=== PATIENT | female | born 1965 | race Two or more races ===

== ENCOUNTER 2017-09-16 10:44 | Emergency (ER) | payer OTHER, MEDICAID ==
[~2017-09-16] VITALS: Ht 172.7 cm; Wt 90.7 kg
[2017-09-16 11:00] VITALS: BP 138/92
[2017-09-16 11:26] LABS: Basophils # (auto) 0.1 uL; Basophils % (auto) 1.2 % (0.0-2.0); Eosinophils # (auto) 0.1 uL; Eosinophils % (auto) 1.7 % (0.0-7.0); Hematocrit 36.1 % (36.0-46.0); Hemoglobin 11.8 g/dL (12.2-16.2); Lymphocytes # (auto) 2.1 uL; Lymphocytes % (auto) 32.7 % (10.0-50.0); Mean Corpuscular Hemoglobin 31.4 pg (28.0-32.0); Mean Corpuscular Hgb Conc. 32.6 g/dL (32.0-36.0); Mean Corpuscular Volume 96.3 fL (80.0-100.0); Monocytes # (auto) 0.5 uL; Neutrophils # (auto) 3.6 uL; Neutrophils % (auto) 56.4 % (37.0-80.0); Nucleated Red Blood Cells % 0.1 %; Platelet Count (auto) 164 10^3/uL (140-450); Red Blood Cells 3.75 10^6/uL (4.0-5.20); Red Cell Distribution Width 16.2 % (11.8-14.3); White Blood Cell 6.4 10^3/uL (4.4-10.8)
[2017-09-16 11:50] LABS: Alanine Aminotransferase 34 U/L (13-56); Albumin 3.4 g/dL (3.4-5.0); Alkaline Phosphatase 82 U/L (45-117); Anion Gap 9 (5-15); Aspartate Aminotransferase 57 U/L (15-37); BUN/Creatinine Ratio 11.2; Bilirubin, Total 1.9 mg/dL (0.2-1.0); Blood Urea Nitrogen 10 mg/dL (7-18); Calcium 8.9 mg/dL (8.5-10.1); Carbon Dioxide 26 mmol/L (21-32); Chloride 107 mmol/L (98-107); GFR African American 86 mL/min; GFR Non-African American 71 mL/min; Glucose 96 mg/dL (74-106); Magnesium 1.7 mg/dL (1.6-2.6); Potassium 3.3 mmol/L (3.5-5.1); Sodium 142 mmol/L (136-145); Total Protein 6.9 g/dL (6.4-8.2)
== END 2017-09-16 13:33 | disposition left against medical advice (07) ==
LOC: ER 10:44
DX: M54.5 Low back pain (principal); M79.671 Pain in right foot; Z53.21 Procedure and treatment not carried out due to patient leaving prior to being seen by health care provider
CPT/HCPCS: 36415; 80053; 83735; 84484; 85025

== ENCOUNTER 2019-12-31 09:35 | Inpatient (IN) | payer MEDICARE, OTHER ==
[2019-12-30] MEDS: fentaNYL Drip 2500mCg/250mlNS 250 ML IV SCH (22:00)
[~2019-12-31] VITALS: Ht 165.1 cm; Wt 76.0 kg
[2019-12-31] VITALS (43 sets, daily range): BP systolic 107–143; BP diastolic 56–88
[2019-12-31] MEDS ORDERED: methylPREDNISolone SOD SUCC 125 MG/2 ML VL ONE (09:38)
[2019-12-31] MEDS ORDERED: diphenhdrAMINE HCL 50 MG/1 ML VL ONE ×2 (09:38→18:14)
[2019-12-31] MEDS ORDERED: FAMOTIDINE (10MG/ML) 2ML VL IV ONE ×2 (09:39→09:40)
[2019-12-31] MEDS ORDERED: diphenhdrAMINE HCL 50 MG/1 ML VL IV ONE (09:40)
[2019-12-31] MEDS ORDERED: methylPREDNISolone SOD SUCC 125 MG/2 ML VL IV ONE (09:40)
[2019-12-31] MEDS ORDERED: ETOMIDATE (2MG/ML) 20ML VIAL IV ONE ×2 (09:43→09:45)
[2019-12-31] MEDS ORDERED: MIDAZOLAM DRIP 50 mg/50mL 0 ML IV ONE (09:44)
[2019-12-31] MEDS ORDERED: SUCCINYLCHOLINE CHLORIDE 20 MG/ML 10ML VIAL IV ONE ×2 (09:44→09:45)
[2019-12-31] MEDS ORDERED: MIDAZOLAM DRIP 50 mg/50mL 50 ML IV SCH (09:45)
[2019-12-31] MEDS ORDERED: MIDAZOLAM DRIP 50 mg/50mL 50 ML IV ONE ×3 (09:48→18:14)
[2019-12-31] MEDS ORDERED: PROPOFOL 10 MG/ML 20 ML IV ONE (10:05)
[2019-12-31] MEDS ORDERED: DexAMETHasone SOD PHOS 10MG/1ML VIAL INJ IV ONE (10:05)
[2019-12-31] MEDS ORDERED: LIDOCAINE W/ EPINEPHRINE 1% 20ML VIAL ONE (10:16)
[2019-12-31] MEDS ORDERED: MIDAZOLAM HCL 1MG/1ML-2 ML VIAL ONE ×2 (10:27→10:40)
[2019-12-31] MEDS ORDERED: fentaNYL CITRATE 100 MCG/2 ML VL ONE (10:27)
[2019-12-31] MEDS ORDERED: HYDROmorphone HCL 2 MG/ML VL ONE (10:27)
[2019-12-31] MEDS ORDERED: NOREPINEPHRINE 8 MG/250ML KIT 250 ML IV ONE (11:08)
[2019-12-31] MEDS: NOREPINEPHRINE 8 MG/250ML KIT 250 ML IV SCH (11:12)
[2019-12-31] MEDS ORDERED: PIPERACILLIN-TAZOB 3.375GM 100 ML IV ONE (11:15)
[2019-12-31] MEDS ORDERED: DEXTROSE (50%) 50ML SYRG IV PRN (11:15)
[2019-12-31] MEDS ORDERED: MONTELUKAST SODIUM 10 MG TAB PO ONE (11:15)
[2019-12-31] MEDS ORDERED: NITROGLYCERIN 0.4 MG SL TAB SL PRN (11:15)
[2019-12-31] MEDS ORDERED: PANTOPRAZOLE 40 MG/10 ML VIAL INJ IV ONE (11:15)
[2019-12-31] MEDS: InsuLIN REG 1unit/0.01ml Soln (100units/ml) SC SCH ×2 (11:24→18:50)
[2019-12-31] MEDS: ACCU-CHEK COMFORT CURVE STRIP VI SCH ×2 (11:24→18:53)
[2019-12-31] MEDS: LACTATED RINGER'S 1,000 ML IV SCH ×2 (11:30→15:02)
[2019-12-31] MEDS: diphenhdrAMINE HCL 50 MG/1 ML VL IV SCH ×2 (12:41→18:19)
[2019-12-31 12:48] LABS: Albumin 2.6 g/dL (3.4-5.0); Anion Gap 8 (5-15); Blood Urea Nitrogen 6 mg/dL (7-18); Carbon Dioxide 23 mmol/L (21-32); Chloride 110 mmol/L (98-107); Glucose 115 mg/dL (74-106); Potassium 3.6 mmol/L (3.5-5.1); Sodium 141 mmol/L (136-145)
[2019-12-31 12:53] LABS: Alanine Aminotransferase 18 U/L (13-56); Alkaline Phosphatase 96 U/L (45-117); Aspartate Aminotransferase 50 U/L (15-37); BUN/Creatinine Ratio 7.8; Bilirubin, Total 0.9 mg/dL (0.2-1.0); GFR African American 100 mL/min; GFR Non-African American 83 mL/min; Total Protein 7.2 g/dL (6.4-8.2)
[2019-12-31 12:56] LABS: Basophils # (auto) 0 10 ^3/uL (0-0.2); Basophils % (auto) 0.2 % (0.0-2.0); Eosinophils # (auto) 0 10 ^3/uL (0-0.8); INR 1.11 (0.9-1.15); Lymphocytes # (auto) 0.4 10 ^3/uL (0.4-5.4); Monocytes # (auto) 0.3 10 ^3/uL (0-1.3); Partial Thromboplastin Time 29.9 sec (23.0-31.2)
[2019-12-31 12:57] LABS: Eosinophils % (auto) 0.2 % (0.0-7.0); Hematocrit 38.6 % (36.0-46.0); Hemoglobin 12.3 g/dL (12.2-16.2); Lymphocytes % (auto) 3.3 % (10.0-50.0); Mean Corpuscular Hemoglobin 32.3 pg (28.0-32.0); Mean Corpuscular Hgb Conc. 31.9 g/dL (32.0-36.0); Mean Corpuscular Volume 101.3 fL (80.0-100.0); Monocytes % (auto) 2.1 % (0.0-12.0); Neutrophils # (auto) 11.5 10 ^3/uL (1.6-8.6); Neutrophils % (auto) 94.2 % (37.0-80.0); Platelet Count (auto) 326 10^3/uL (140-450); Red Blood Cells 3.82 10^6/uL (4.0-5.20); Red Cell Distribution Width 13.2 % (11.8-14.3); White Blood Cell 12.2 10^3/uL (4.4-10.8)
--- NOTE | 2019-12-31 13:30 | NUR ---
RECEIVED PT FROM OR S/P EMERGENCY TRACHEOSTOMY INSERTION BY DR. PECK FOR ANGIOEDEMA. 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 PT'S TONGUE PROTRUDING OUT OF PT'S MOUTH AND COVERED WITH MOISTEN 4x4 DRESSINGS WITH NS TO KEEP TONGUE MOIST. VENT SETTINGS AC 18, TV 500, 50% PEEP 5. LS COARSE WITH RHONCHI AND CLEAR WHEN SUCTIONED. PT CURRENTLY INTUBATED & SEDATED ON FENTANYL AT 25 MCG/HR AND VERSED AT 5 MG/HR. PT IS COMFORTABLE WITH CURRENT SEDATION LR AT 100 ML/HR. PT HAS 2 IV'S ONE ON THE RT HAND THE OTHER ON THE LT FA BOTH ARE BENIN & PATENT. FC EXCRETING CLEAR YELLOW URINE TO GRAVITY, FC WITH SECUREMENT DEVICE IN PLACE. ALL MONITOR ALARMS VERIFIED. PT'S SKIN INTACT OTHER THJAN TRACH INCISION AND SWOLLEN TONGUE. PT'S BELONGINGS WILL BE SENT TO SAFE.
--- NOTE | 2019-12-31 14:56 | NUR ---
2ND CALL TO PT'S PHONE # THAT WE OBTAINED FROM PT'S MD'S OFFICE. TO OBTAIN CONSENT FOR PICC LINE INSERTION.
--- NOTE | 2019-12-31 15:25 | NUR ---
NOTIFIED DR. RO THAT I COULD NOT GET HOLD OF NOK FOR PT'S PICC LINE INSERTION . STATES TO GET CONSENT FROM DR. PECK. I PAGED DR. PECK AT THIS TIME.
--- NOTE | 2019-12-31 15:29 | NUR ---
CONSENT FOR PICC OBTAINED FROM ED MD DR. HUTCHINSON AND DR. RO, PT DOES NOT HAVE ANYONE TO CONSENT FOR HER AT THIS TIME. I CALL ALL THE PHONE NUMBERS FOUND IN HER PHONE. NO CALL BACKS. I WAS ABLE TO REACH HER BOYFRIEND BUT HE HAS NO MEDICAL POA. OBTAIN SOME MEDICAL HISTORY FROM PT'S BOYFRIEND , THEY HAVE BEEN TOGETHER FOR ONE YEAR HE DENIES KNOWING ANY OF PT'S FAMILY MEMBERS.
--- NOTE | 2019-12-31 16:59 | NUR ---
PICC line placement Patient/Patient significant other educated on need for PICC line placement. All risks and benefits explained and all questions and concerns addressed prior to procedure. Noted past medical history and allergies with no contraindications. INR and Plt counts within acceptable range. 5 fr PICC line inserted via RIGHT BRACHIAL vein using [employer] US and Tip Location System. Sterile technique with maximum barrier precautions utilized. Blood return obtained from each of THE THREE lumens and each flushed easily with NS using proper technique. PICC secured with Stat-lock; biodisc and occlusive dressing applied. Stat portable chest x-ray obtained for PICC tip placement. *Baseline Arm Circumference 29 CM INTERNAL LENGTH 41 CM EXTERNAL LENGTH 0 CM PICC lot # [id number]
--- NOTE | 2019-12-31 17:10 | NUR ---
OK to use PICC line Xray completed. OK to use PICC line. Primary RN Cait notified.
[2019-12-31] MEDS ORDERED: LIDOCAINE 1% (LOCAL ANESTH.) PF 5ml SDV ID ONE (17:15)
[2019-12-31] MEDS ORDERED: LEVO-28 PO (18:15)
[2019-12-31] MEDS ORDERED: SULF-92 PO (18:15)
[2019-12-31] MEDS ORDERED: OXYC325T14 PO (18:15)
[2019-12-31] MEDS ORDERED: LISI30TA4 PO (18:15)
[2019-12-31] MEDS ORDERED: FURO1TAB31 PO (18:15)
[2019-12-31] MEDS ORDERED: SACU1TAB PO (18:15)
[2019-12-31] MEDS ORDERED: ALBUAER3 IN (18:15)
[2019-12-31] MEDS: PIPERACILLIN-TAZOB 3.375GM 100 ML IV SCH ×2 (18:19→22:00)
[2019-12-31] MEDS: methylPREDNISolone SOD SUCC 125 MG/2 ML VL IV SCH ×2 (18:19→22:00)
[2019-12-31] MEDS: MIDAZOLAM DRIP 50 mg/50mL 50 ML IV SCH (18:25)
[2019-12-31] MEDS ORDERED: MONTELUKAST SODIUM 10 MG TAB ONE (18:32)
[2019-12-31] MEDS ORDERED: InsuLIN REG 1unit/0.01ml Soln (100units/ml) ONE (18:53)
--- NOTE | 2019-12-31 19:00 | NUR ---
Opening shift note: Report received on patient. Patient currently resting in bed sedated on Fent and versed. Patient had an emergency Trach performed today d/t edema of the tongue that was blocking patient's airway. NGT to right Nostril connected to LIS. Placement confirmed. Mcleod catheter draining via gravity with yellow urine. Safety precautions in place. Will continue to monitor patient.
--- NOTE | 2019-12-31 20:23 | NUR ---
FFP STARTED. RN WILL CONTINUE TO MONITOR AND ASSESS PATIENT.
--- NOTE | 2019-12-31 21:00 | NUR ---
TRANSFUSION: PATIENT CONTINUES WITH FFP TRANSFUSION AND NO ADVERSE REACTIONS NOTED AT THIS TIME. RN WILL CONTINUE TO MONITOR AND ASSESS PATIENT.
[2019-12-31] MEDS: MONTELUKAST SODIUM 10 MG TAB PO SCH (22:00)
[2019-12-31] MEDS: SODIUM CHLOR 0.9% PF (SALINE LOCK) 10ML VIAL/SYR IV SCH (22:26)
--- NOTE | 2019-12-31 22:30 | NUR ---
FFP TRANSFUSION: PATIENT COMPLETED FFP TRANSFUSION WITH NO S/S OF DISCOMFORT, DISTRESS OR ADVERSE REACTION. RN WILL CONTINUE TO MONITOR AND ASSESS.
--- NOTE | 2019-12-31 23:00 | NUR ---
Sedation increased: Sedation had to be increased d/t patient waking and attempting to climb out of bed. RN stayed at patient bedside for a long period of time to ensure patient was safe and no harm was caused.
[2020-01-01] VITALS (101 sets, daily range): BP systolic 81–143; BP diastolic 50–76
[2020-01-01] MEDS: ACCU-CHEK COMFORT CURVE STRIP VI SCH ×4 (00:10→17:35)
--- NOTE | 2020-01-01 02:30 | NUR ---
Covid sample obtained and swab walked to lab.
[2020-01-01 03:31] LABS: Urine Blood Negative /uL (Negative); Urine Specific Gravity 1.017 (1.001-1.035); Urine WBC 1 /hpf (0 - 5)
[2020-01-01 03:32] LABS: Urine Bacteria NONE SEEN /hpf (None Seen)
[2020-01-01 04:32] LABS: Alcohol, Urine < 3.0 mg/dL (0-10); Amphetamine Screen, Urine POSITIVE (NEGATIVE); Barbiturate Scree,Urine NEGATIVE (NEGATIVE); Benzodiazephine Screen, Urine POSITIVE (NEGATIVE); Cannabinoid Screen, Urine POSITIVE (NEGATIVE); Cocaine Screen, Urine NEGATIVE (NEGATIVE); Phencyclidine Screen, Urine NEGATIVE (NEGATIVE)
[2020-01-01 04:40] LABS: Opiate Scree,Urine NEGATIVE (NEGATIVE)
[2020-01-01 05:11] LABS: Basophils # (auto) 0 10 ^3/uL (0-0.2); Basophils % (auto) 0.1 % (0.0-2.0); Eosinophils # (auto) 0 10 ^3/uL (0-0.8); Hematocrit 38.7 % (36.0-46.0); Hemoglobin 12.8 g/dL (12.2-16.2); Lymphocytes # (auto) 0.8 10 ^3/uL (0.4-5.4); Lymphocytes % (auto) 7.4 % (10.0-50.0); Mean Corpuscular Hemoglobin 33.2 pg (28.0-32.0); Mean Corpuscular Hgb Conc. 33.1 g/dL (32.0-36.0); Mean Corpuscular Volume 100.2 fL (80.0-100.0); Monocytes # (auto) 0.1 10 ^3/uL (0-1.3); Monocytes % (auto) 1.2 % (0.0-12.0); Neutrophils # (auto) 9.5 10 ^3/uL (1.6-8.6); Neutrophils % (auto) 91.3 % (37.0-80.0); Nucleated Red Blood Cells % 0.3 %; Platelet Count (auto) 313 10^3/uL (140-450); Red Blood Cells 3.86 10^6/uL (4.0-5.20); Red Cell Distribution Width 13.4 % (11.8-14.3); White Blood Cell 10.4 10^3/uL (4.4-10.8)
[2020-01-01 05:32] LABS: Alanine Aminotransferase 15 U/L (13-56); Albumin 2.4 g/dL (3.4-5.0); Alkaline Phosphatase 76 U/L (45-117); Aspartate Aminotransferase 28 U/L (15-37); BUN/Creatinine Ratio 12.5; Bilirubin, Total 0.5 mg/dL (0.2-1.0); Blood Urea Nitrogen 8 mg/dL (7-18); Calcium 8.6 mg/dL (8.5-10.1); Carbon Dioxide 26 mmol/L (21-32); GFR African American 124 mL/min; GFR Non-African American 103 mL/min; Glucose 123 mg/dL (74-106); Total Protein 6.3 g/dL (6.4-8.2)
[2020-01-01] MEDS: PIPERACILLIN-TAZOB 3.375GM 100 ML IV SCH ×3 (05:46→22:00)
[2020-01-01] MEDS: methylPREDNISolone SOD SUCC 125 MG/2 ML VL IV SCH ×3 (05:46→22:00)
[2020-01-01] MEDS: diphenhdrAMINE HCL 50 MG/1 ML VL IV SCH ×4 (05:46→17:37)
[2020-01-01] MEDS: InsuLIN REG 1unit/0.01ml Soln (100units/ml) SC SCH ×4 (05:47→17:36)
[2020-01-01 06:33] LABS: Anion Gap 4 (5-15); Chloride 110 mmol/L (98-107); Potassium 4.2 mmol/L (3.5-5.1); Sodium 140 mmol/L (136-145)
--- NOTE | 2020-01-01 06:59 | NUR ---
Levo started and stopped. Levo was started d/t patient's blood pressure decreasing to 84/52. As soon as levo was started, patient became norberto to 50's and BP increased to 187/110. Levo was stopped. Patient heart rate back to 67 SR.
--- NOTE | 2020-01-01 07:11 | NUR ---
REPORT RECEIVED FROM PESTICIDE APPLICATOR RN
[2020-01-01] MEDS: SODIUM CHLOR 0.9% PF (SALINE LOCK) 10ML VIAL/SYR IV SCH ×2 (08:58→22:00)
[2020-01-01] MEDS: LACTATED RINGER'S 1,000 ML IV SCH ×2 (08:58→11:15)
[2020-01-01] MEDS: PANTOPRAZOLE 40 MG/10 ML VIAL INJ IV SCH (08:58)
--- NOTE | 2020-01-01 09:00 | NUR ---
SEDATION VACATION HELD AT THIS TIME. DUE TO AGITATION Addendum: 01/01/20 at 1026 by Minesh Bergeron RN Amended: Links added.
--- NOTE | 2020-01-01 11:10 | NUR ---
DR. RO AT [facility] Addendum: 01/01/20 at 1401 by Minesh Bergeron RN TIME 1112
[2020-01-01] MEDS: NOREPINEPHRINE 8 MG/250ML KIT 250 ML IV SCH (11:12)
--- NOTE | 2020-01-01 11:12 | NUR ---
DR. RO AT BEDSIDE
--- NOTE | 2020-01-01 11:30 | NUR ---
Nutrition Consult Consider Glucerna 1.2 at a goal rate of 60 ml/hr per Md approval Est energy needs 1071-2174 kcal (20-25 kcal/kg BW 72.2kg) Est protein needs 58-72g (0.8-1g/kg BW 72.2kg) Will reassess prn. Addendum: 01/01/20 at [address] Amended: Links added.
--- NOTE | 2020-01-01 11:32 | NUR ---
WOUND CARE NOTE: Wound care in to see patient per wound care request regarding "trach incision monitoring", low Aravind score of 12 and intubation status, putting patient to high risk for skin breakdown. Patient is 54 years old female admitted for Tongue swelling. Patient is resting in ICU bed in Rm. 108. Patient is mechanically ventilated via trach. Patient appears to be in no pain using Do [place] Faces Pain Scale. Skin assessment done with the assistance of patient's nurse, KENDELL Edge. No wound noted, other than intact, suture to trach site with pink, dry surrounding skin no. On reports, patient came in with tongue swelling obstructing her air way and so she undergone emergent tracheostomy. No pressure injury noted. Repositioned patient for comfort facing her Rt. side, redistributed pressure points with pillows. Patient tolerated well. KENDELL Edge at bedside. RECOMMENDATION: frequent turning and repositioning schedule as condition permits, redistribute pressure points with pillows, elevate heels on pillows, continue monitoring by wound care while is mechanically ventilated and Aravind score is <18.
[2020-01-01] MEDS: fentaNYL Drip 2500mCg/250mlNS 250 ML IV SCH (11:38)
--- NOTE | 2020-01-01 11:45 | NUR ---
WOUND CARE NURSE AT BEDSIDE TO ASSESS PATIENT
[2020-01-01] MEDS: MIDAZOLAM DRIP 50 mg/50mL 50 ML IV SCH (12:22)
--- NOTE | 2020-01-01 14:01 | NUR ---
ORAL AND TRACH CARE PERFORMED PATIENT TOLERATED WELL
--- NOTE | 2020-01-01 15:02 | NUR ---
assessment Patient is a 54 year old female who was alert and oriented on admission. Patient had to be trached due to tongue swelling. Per ss consult patient lives with sig other, marijuana use, trached, no DPOA. Patient does live with her boyfriend ZOHREH Dunbar and was independent prior to admission per XL. XL informed me patient has no DME for ambulating, but does use home oxygen. XL informed me patient does smoke marijuana about 3 times per week. XL informed me patient has a sister, but he does not know where she is. Patient has no other family that he knows of. Per XL patient is to return home with him on discharge. I infomred XL I will continue to monitor and follow up as appropriate for any post discharge needs. XL verbalized understanding. Addendum: 01/01/20 at 1508 by Mattie KIRAN Amended: Links added.
--- NOTE | 2020-01-01 15:32 | NUR ---
PARTIAL LINEN CHANGE PERFORMED AT THIS TIME
--- NOTE | 2020-01-01 18:22 | NUR ---
ORAL CARE PERFORMED PATIENT TOLERATED WELL
--- NOTE | 2020-01-01 19:00 | NUR ---
Opening shift note: Report received on patient. Patient currently resting in bed sedated on Fent and versed. NGT to right Nostril connected to LIS. Placement confirmed. Mcleod catheter draining via gravity with yellow urine. Safety precautions in place. Will continue to monitor patient.
[2020-01-01] MEDS: MONTELUKAST SODIUM 10 MG TAB PO SCH (22:00)
--- NOTE | 2020-01-01 22:00 | NUR ---
Moist gauze on swollen tongue changed to keep tongue moist and prevent dryness.
[2020-01-02] VITALS (92 sets, daily range): BP systolic 109–151; BP diastolic 58–87
--- NOTE | 2020-01-02 | NUR ---
Moist gauze on swollen tongue changed to keep tongue moist and prevent dryness.
--- NOTE | 2020-01-02 02:00 | NUR ---
Moist gauze on swollen tongue changed to keep tongue moist and prevent dryness.
[2020-01-02] MEDS: LACTATED RINGER'S 1,000 ML IV SCH ×2 (03:55→15:53)
--- NOTE | 2020-01-02 03:58 | NUR ---
Moist gauze on swollen tongue changed to keep tongue moist and prevent dryness.
[2020-01-02 04:15] LABS: Basophils # (auto) 0.1 10 ^3/uL (0-0.2); Basophils % (auto) 0.4 % (0.0-2.0); Eosinophils # (auto) 0 10 ^3/uL (0-0.8); Hematocrit 36.2 % (36.0-46.0); Lymphocytes % (auto) 5.4 % (10.0-50.0); Mean Corpuscular Hemoglobin 33.2 pg (28.0-32.0); Mean Corpuscular Hgb Conc. 33.1 g/dL (32.0-36.0); Mean Corpuscular Volume 100.1 fL (80.0-100.0); Monocytes # (auto) 0.4 10 ^3/uL (0-1.3); Monocytes % (auto) 2.3 % (0.0-12.0); Neutrophils # (auto) 16.9 10 ^3/uL (1.6-8.6); Neutrophils % (auto) 91.9 % (37.0-80.0); Platelet Count (auto) 344 10^3/uL (140-450); Red Blood Cells 3.61 10^6/uL (4.0-5.20); Red Cell Distribution Width 13.5 % (11.8-14.3); White Blood Cell 18.4 10^3/uL (4.4-10.8)
[2020-01-02 04:38] LABS: BUN/Creatinine Ratio 20.5; Calcium 8.8 mg/dL (8.5-10.1); Potassium 4.2 mmol/L (3.5-5.1)
[2020-01-02] MEDS: diphenhdrAMINE HCL 50 MG/1 ML VL IV SCH ×5 (05:22→21:33)
[2020-01-02] MEDS: methylPREDNISolone SOD SUCC 125 MG/2 ML VL IV SCH ×3 (05:23→21:34)
[2020-01-02] MEDS: PIPERACILLIN-TAZOB 3.375GM 100 ML IV SCH ×3 (05:23→21:34)
[2020-01-02] MEDS: InsuLIN REG 1unit/0.01ml Soln (100units/ml) SC SCH ×4 (05:23→18:00)
[2020-01-02] MEDS: ACCU-CHEK COMFORT CURVE STRIP VI SCH ×4 (05:24→18:01)
[2020-01-02] MEDS: SODIUM CHLOR 0.9% PF (SALINE LOCK) 10ML VIAL/SYR IV SCH ×2 (10:09→21:33)
[2020-01-02] MEDS: PANTOPRAZOLE 40 MG/10 ML VIAL INJ IV SCH (10:09)
[2020-01-02] MEDS: NOREPINEPHRINE 8 MG/250ML KIT 250 ML IV SCH (11:12)
[2020-01-02] MEDS: MIDAZOLAM DRIP 50 mg/50mL 50 ML IV SCH ×2 (11:12→22:16)
--- NOTE | 2020-01-02 14:05 | NUR ---
DR RO CAME AND SAW THE PATIENT AND ORDERED TO WEAN FROM SEDATION AND PUT PATIENT ON TRACH COLLAR.MOIST SWOLLEN TONGUE WITH NS. SUCTIONED PATIENT ORALLY AND PATIENT BECAME ANXIOUS BUT STILL SLEEPY. WEANED SEDATION OFF.
--- NOTE | 2020-01-02 16:00 | NUR ---
ATTEMPTED CPAP AND PATIENT BECAME AGITATED AND RESTLESS. TRACH CARE DONE BY RT WITH NURSING ASSIST AND EXPLAINED TO THE PATIENT THE REASON FOR THE TRACH BUT PATIENT BECAME MORE RESTLESS AND KICKING. RESTARTED VERSED AT 6 MG AND FENTANYL AT 150 MCG TO CALM PATIENT .
--- NOTE | 2020-01-02 19:00 | NUR ---
OPENING NOTES ASSUMED CARE, SEDATED AND ON VENT CONNECTED TO TRACHEOSTOMY, PICC LINE, FC INTACT, OCCASIONALLY WAKES UP TO STIMULI, CLEAR LUNG SOUNDS NOTED. BED IN LOWEST POSITION WITH SIDE RAILS UP, BED ALARM ON. WILL CONTINUE CARE.
[2020-01-02] MEDS: MONTELUKAST SODIUM 10 MG TAB PO SCH (21:34)
[2020-01-02] MEDS: fentaNYL Drip 2500mCg/250mlNS 250 ML IV SCH (22:15)
[2020-01-03] VITALS (62 sets, daily range): BP systolic 135–174; BP diastolic 59–84
[2020-01-03] MEDS: ACCU-CHEK COMFORT CURVE STRIP VI SCH ×4 (00:16→17:35)
--- NOTE | 2020-01-03 04:00 | NUR ---
MORNING CARE DONE, ORAL HYGIENE DONE REPOSITIONED FOR COMFORT
[2020-01-03 04:15] LABS: Basophils # (auto) 0 10 ^3/uL (0-0.2); Eosinophils # (auto) 0 10 ^3/uL (0-0.8); Hematocrit 36.1 % (36.0-46.0); Hemoglobin 12.4 g/dL (12.2-16.2); Lymphocytes # (auto) 0.9 10 ^3/uL (0.4-5.4); Lymphocytes % (auto) 7.1 % (10.0-50.0); Mean Corpuscular Hemoglobin 34.4 pg (28.0-32.0); Mean Corpuscular Hgb Conc. 34.4 g/dL (32.0-36.0); Mean Corpuscular Volume 100.1 fL (80.0-100.0); Monocytes # (auto) 0.2 10 ^3/uL (0-1.3); Monocytes % (auto) 1.8 % (0.0-12.0); Neutrophils # (auto) 11.2 10 ^3/uL (1.6-8.6); Neutrophils % (auto) 91.1 % (37.0-80.0); Nucleated Red Blood Cells % 0.1 %; Platelet Count (auto) 250 10^3/uL (140-450); Red Cell Distribution Width 13.2 % (11.8-14.3); White Blood Cell 12.3 10^3/uL (4.4-10.8)
--- NOTE | 2020-01-03 04:15 | NUR ---
Respiratory note: TRACH CARE PERFORMED WITH NO COMPLICATIONS NOTED. NEW AND OLD BLOOD AROUND STOMA SITE. TRACH IS SECURED WITH SUTURES AND TRACH TIE. GAUZE CHANGED. BS CLEAR T/O. SPO2 97%, HR 48, RR 18.
[2020-01-03 04:28] LABS: BUN/Creatinine Ratio 27.4; Potassium 4.2 mmol/L (3.5-5.1)
[2020-01-03] MEDS: InsuLIN REG 1unit/0.01ml Soln (100units/ml) SC SCH ×4 (06:00→17:34)
[2020-01-03] MEDS: diphenhdrAMINE HCL 50 MG/1 ML VL IV SCH ×3 (06:29→21:48)
[2020-01-03] MEDS: PIPERACILLIN-TAZOB 3.375GM 100 ML IV SCH ×3 (06:29→21:50)
[2020-01-03] MEDS: methylPREDNISolone SOD SUCC 125 MG/2 ML VL IV SCH ×3 (06:29→21:49)
[2020-01-03] MEDS: LACTATED RINGER'S 1,000 ML IV SCH (09:16)
[2020-01-03] MEDS: MIDAZOLAM DRIP 50 mg/50mL 50 ML IV SCH ×2 (09:17→18:00)
[2020-01-03] MEDS: PANTOPRAZOLE 40 MG/10 ML VIAL INJ IV SCH (09:50)
[2020-01-03] MEDS: SODIUM CHLOR 0.9% PF (SALINE LOCK) 10ML VIAL/SYR IV SCH ×2 (09:50→21:49)
[2020-01-03] MEDS: NOREPINEPHRINE 8 MG/250ML KIT 250 ML IV SCH (11:12)
--- NOTE | 2020-01-03 12:14 | NUR ---
Nutrition Followup Notes Wt: 72.0 kg pt`s on trach collar with no family by bedside. pt is currently NPO with no new diet orders Est energy needs 2895-7327 kcal (20-25 kcal/kg BW 72.2kg) Est protein needs 58-72g (0.8-1g/kg BW 72.2kg) Will reassess prn. Labs: GLU 119 H rest lab wnl BM: Pt has no BM reported per RN doc Skin: BS 13 mod risk, full details in home health care physician note PES: Inadequate oral intake aeb pt with NPO diet order r/t current medical condition Comments Will continue to monitor NPO status, skin status, pertinent labs and weight trends. Will f/u in 2-3 days. Rec: 1) Continue to monitor NPO status, labs, skin 2) refer pt to OPD on Dc 3) Continue current plan of care. Consider initiating TF of Glucerna 1.2 when medically feasible with a goal rate of 60 ml/hr
--- NOTE | 2020-01-03 16:34 | NUR ---
PATIENT WAS SEEN BY DR Petros VIZCARRA AND ATTEMPTED TO WEAN FROM VERSED AND FENTANYL FOR CPAP. WHEN READY FOR CPAP PATIENT BECAME RESTLESS AND TOSSING AROUND DR Mayank VIZCARRA NOT TO CPAP TODAY BECAUSE PATIENT NOT FOLLOWING ANY COMMANDS. INSTRUCTED PATIENT WHAT HAPPENED AND EXPLAINED WHAT OCCURED THAT SHE HAVE A TRACHEOSTOMY TUBE DUE TO HER NECK AND TONGUE SWELLING BUT PATIENT CONTINUES TO BE AGITATED.
--- NOTE | 2020-01-03 19:10 | NUR ---
Report received from KENDELL Haas. Patient has emergent Tracheostomy to Vent. Vent settings: AC 18 Vt 500 FiO2 30% PEEp 5. IVF: Fentanyl drip infusion at 75 mcg/hr; and, Versed drip infusion at 8 mg/hr. Will continue with POC; and, will continue to monitor VS, RASS -3, and clinical status.
--- NOTE | 2020-01-03 19:35 | NUR ---
Hospitalist paged for order: Precedex.
[2020-01-03] MEDS: fentaNYL Drip 2500mCg/250mlNS 250 ML IV SCH (20:49)
--- NOTE | 2020-01-03 20:49 | NUR ---
Fentanyl drip bag changed to new bag.
--- NOTE | 2020-01-03 21:49 | NUR ---
Rtn scheduled medications given. See e-MAR.
[2020-01-03] MEDS: MONTELUKAST SODIUM 10 MG TAB PO SCH (21:50)
--- NOTE | 2020-01-03 23:52 | NUR ---
Patient sat up in bed; and, disconnected Vent Tubing. Fentanyl drip increase to 100 mcg/hr; also, Versed drip increase to 10 mg/hr. Accucheck 398 mg/dl. Patient covered with Regular Insulin 10 units SQ.
[2020-01-04] VITALS (101 sets, daily range): BP systolic 108–156; BP diastolic 63–81
[2020-01-04] MEDS: ACCU-CHEK COMFORT CURVE STRIP VI SCH ×4 (00:18→18:00)
[2020-01-04] MEDS: InsuLIN REG 1unit/0.01ml Soln (100units/ml) SC SCH ×4 (00:19→19:13)
[2020-01-04] MEDS: MIDAZOLAM DRIP 50 mg/50mL 50 ML IV SCH ×3 (01:05→20:25)
--- NOTE | 2020-01-04 01:05 | NUR ---
Versed drip changed to new bag.
[2020-01-04] MEDS: LACTATED RINGER'S 1,000 ML IV SCH (02:56)
--- NOTE | 2020-01-04 02:56 | NUR ---
IVF LR 1000 bag changed to new bag. Resumed infusion at 60 ml/hr.
[2020-01-04] MEDS: diphenhdrAMINE HCL 50 MG/1 ML VL IV SCH ×3 (05:38→20:58)
[2020-01-04] MEDS: PIPERACILLIN-TAZOB 3.375GM 100 ML IV SCH ×3 (05:39→20:59)
[2020-01-04] MEDS: methylPREDNISolone SOD SUCC 125 MG/2 ML VL IV SCH ×3 (05:39→20:59)
--- NOTE | 2020-01-04 05:39 | NUR ---
Rtn scheduled medications given. See e-MAR.
--- NOTE | 2020-01-04 05:56 | NUR ---
Accucheck 151 mg/dl. Patient covered with Regular Insulin 2 units SQ.
--- NOTE | 2020-01-04 07:17 | NUR ---
Versed drip changed to new bag.
[2020-01-04] MEDS: PANTOPRAZOLE 40 MG/10 ML VIAL INJ IV SCH (10:06)
[2020-01-04] MEDS: SODIUM CHLOR 0.9% PF (SALINE LOCK) 10ML VIAL/SYR IV SCH ×2 (10:06→20:58)
[2020-01-04] MEDS: NOREPINEPHRINE 8 MG/250ML KIT 250 ML IV SCH (16:40)
[2020-01-04] MEDS: fentaNYL Drip 2500mCg/250mlNS 250 ML IV SCH (16:41)
--- NOTE | 2020-01-04 19:15 | NUR ---
Opening Shift Note: Patient has trach/on vent. Trach is 8.9 Shiley emergently inserted by Dr. Ames on 12/31/19 related to angioedema/possible anaphylactic shock, patient previously received contrast/bactrim at another facility per physician documentation. Settings: AC rate 18, vT 500, FiO2 30%, and PEEP 5. Neuro: pupils bilateral are 3 mm/brisk; moves extremities intermittently when stimulated verbally mild weakness; + cough/gag. Cardio: SB in 40s with occasional PACs; SBPs 140s/150s; pulses all palpable; no edema noted. Resp: anterior lung sounds are clear throughout; deep tracheal suctioning yellow/thick/small. GI: right nare NGT to LIS: dark green output; hypoactive BS; last BM unknown. : landrum catheter inserted on 12/31/19 for strict I/O: clear yellow. Skin: intragluteal crease has a small break in the skin: zguard and optifoam applied. IV: RUE triple lumen PICC inserted on 12/31/19 running Fentanyl @ 175; Versed @ 10; LR @ 60 ml/hr; IV right hand 20 g IID inserted on 12/31/19; IV 20 g left forearm IID inserted on 12/31/19. No pending orders at this time. Will continue to round/reposition/perform oral care prn.
[2020-01-04] MEDS: MONTELUKAST SODIUM 10 MG TAB PO SCH (20:59)
[2020-01-05] VITALS (97 sets, daily range): BP systolic 101–159; BP diastolic 54–87
[2020-01-05] MEDS: ACCU-CHEK COMFORT CURVE STRIP VI SCH ×4 (00:16→17:48)
--- NOTE | 2020-01-05 05:05 | NUR ---
Patient bathe/linen change Patient given complete CHG bath. Skin integrity assessed for any changes. Linens and gown changed. Patient repositioned for comfort.
[2020-01-05] MEDS: fentaNYL Drip 2500mCg/250mlNS 250 ML IV SCH ×2 (05:37→20:15)
[2020-01-05] MEDS: methylPREDNISolone SOD SUCC 125 MG/2 ML VL IV SCH ×2 (05:37→20:15)
[2020-01-05] MEDS: LACTATED RINGER'S 1,000 ML IV SCH ×2 (05:37→12:17)
[2020-01-05] MEDS: InsuLIN REG 1unit/0.01ml Soln (100units/ml) SC SCH ×5 (05:37→17:50)
[2020-01-05] MEDS: diphenhdrAMINE HCL 50 MG/1 ML VL IV SCH (05:37)
[2020-01-05] MEDS: PIPERACILLIN-TAZOB 3.375GM 100 ML IV SCH (05:37)
[2020-01-05 09:59] LABS: Basophils # (auto) 0 10 ^3/uL (0-0.2); Basophils % (auto) 0.1 % (0.0-2.0); Eosinophils # (auto) 0 10 ^3/uL (0-0.8); Hematocrit 38.7 % (36.0-46.0); Hemoglobin 13.2 g/dL (12.2-16.2); Lymphocytes # (auto) 0.7 10 ^3/uL (0.4-5.4); Lymphocytes % (auto) 6.7 % (10.0-50.0); Mean Corpuscular Hemoglobin 33.8 pg (28.0-32.0); Mean Corpuscular Hgb Conc. 34.1 g/dL (32.0-36.0); Mean Corpuscular Volume 99.2 fL (80.0-100.0); Monocytes # (auto) 0.3 10 ^3/uL (0-1.3); Monocytes % (auto) 2.7 % (0.0-12.0); Neutrophils # (auto) 9.9 10 ^3/uL (1.6-8.6); Neutrophils % (auto) 90.5 % (37.0-80.0); Nucleated Red Blood Cells % 0.2 %; Platelet Count (auto) 201 10^3/uL (140-450); Red Cell Distribution Width 13.1 % (11.8-14.3)
[2020-01-05] MEDS: PANTOPRAZOLE 40 MG/10 ML VIAL INJ IV SCH (10:30)
[2020-01-05] MEDS: SODIUM CHLOR 0.9% PF (SALINE LOCK) 10ML VIAL/SYR IV SCH ×2 (10:30→20:15)
[2020-01-05 10:38] LABS: Albumin 2.3 g/dL (3.4-5.0); Calcium 8.8 mg/dL (8.5-10.1)
[2020-01-05 10:43] LABS: BUN/Creatinine Ratio 29.2; Bilirubin, Total 0.7 mg/dL (0.2-1.0); Total Protein 6.4 g/dL (6.4-8.2)
--- NOTE | 2020-01-05 12:00 | NUR ---
MISSED ACCUCHECK AT 1200 DUE TO EMERGENCY WITH OTHER ASSIGNED PATIENT
--- NOTE | 2020-01-05 12:11 | NUR ---
Nutrition Followup Notes Wt: 74.0 kg Pt`s on trach collar with no family by bedside. Pt is currently NPO with no new diet orders, waiting for MD diet order per RN. Est energy needs 4286-4519 kcal (20-25 kcal/kg BW 72.2kg) Est protein needs 58-72g (0.8-1g/kg BW 72.2kg) Will reassess prn. Labs: GLU 119 H, Alb 2.4 L, rest lab wnl BM: Pt has no BM reported per RN doc Skin: BS 13 mod risk, full details in disabilities caregiver note PES: Inadequate oral intake aeb pt with NPO diet order r/t current medical condition Comments Will continue to monitor NPO status, skin status, pertinent labs and weight trends. Will f/u in 2-3 days. Rec: 1) Continue to monitor NPO status, labs, skin 2) refer pt to OPD on Dc 3) Continue current plan of care. Consider initiating TF of Glucerna 1.2 when medically feasible with a goal rate of 60 ml/hr
[2020-01-05] MEDS: MIDAZOLAM DRIP 50 mg/50mL 50 ML IV SCH ×2 (12:16→20:16)
--- NOTE | 2020-01-05 14:57 | NUR ---
DR RO AT BEDSIDE, NEW ORDERS OBTAINED
[2020-01-05] MEDS ORDERED: diphenhdrAMINE HCL 50 MG/1 ML VL IV PRN (15:00)
--- NOTE | 2020-01-05 16:00 | NUR ---
VERSED OFF AT THIS TIME FOR DR ORDER FOR TRACH COLLAR RT AWARE
--- NOTE | 2020-01-05 16:15 | NUR ---
Respiratory note: ALARMS AT APPROPRIATE SETTINGS AND AUDIBLE. BREATH SOUNDS ARE CLEAR. RN AT BEDSIDE. PT PLACED ON COOL MIST TRACH COLLAR PER DR RO'S ORDERS. PT DID NOT TOLERATE TRACH COLLAR. PT IS STILL GROGGY AND SLOW TO RESPOND TO VERBAL COMMANDS. WILL ENDORSE PT CARE TO NOC RT.
--- NOTE | 2020-01-05 17:30 | NUR ---
IV removal X2 R HAND 20G, L FA 20G REMOVED DUE TO PLACEMENT ON 12/30, BOTH IVS DC'd with clean sterile technique, catheter fully intact. Pressure dressing applied to site. Patient tolerated well.
--- NOTE | 2020-01-05 18:37 | NUR ---
VERSED TURNED BACK ON AT 1800 DUE TO PATIENT ATTEMPTING TO CONSTANTLY SIT UP IN BED AND THRASHING ARMS/LEGS. ATIVAN ORDER IN PER DR RO HOWEVER PATIENT UNABLE TO FOLLOW COMMANDS AT THIS TIME SO SEDATION BACK ON FOR NIGHT. REMAINED ON FENTANYL AT 175 MCG/HR. RT AWARE. OK FOR PRECEDEX GTT IN AM PER DR RO TO ATTEMPT TO GET PATIENT OFF VENTILATOR AND PLACED ON TRACH COLLAR.
--- NOTE | 2020-01-05 19:20 | NUR ---
Opening Shift Note: Patient has trach/on vent. Trach is 8.0 Shiley emergently inserted by Dr. Ames on 12/31/19 related to angioedema/possible anaphylactic shock, patient previously received contrast/bactrim at another facility per physician documentation. Settings: AC rate 18, vT 500, FiO2 30%, and PEEP 5. Neuro: pupils bilateral are 3 mm/brisk; moves extremities intermittently when stimulated verbally mild weakness; + cough/gag. Cardio: SB in 40s with occasional PACs; SBPs 120s; pulses all palpable; no edema noted. Resp: anterior lung sounds are clear throughout; deep tracheal suctioning yellow/thick/small. GI: right nare NGT to LIS: dark green output; hypoactive BS; last BM unknown. : landrum catheter inserted on 12/31/19 for strict I/O: clear yellow. Skin: intragluteal crease has a small break in the skin: zguard and optifoam applied. IV: RUE triple lumen PICC inserted on 12/31/19 running Fentanyl @ 175; Versed @ 10. Plan to initiate trach collar when patient hemodynamically able to tolerate; will start precedex to ease process and decrease sedation. Will continue to round/reposition/perform oral care prn.
[2020-01-05] MEDS: MONTELUKAST SODIUM 10 MG TAB PO SCH (20:15)
[2020-01-05] MEDS: DexMEDEtomidine 400 MCG in D5W 5% 96 ML IV SCH (23:30)
--- NOTE | 2020-01-05 23:30 | NUR ---
Precedex started per protocol for anticipated trach collar trial
--- NOTE | 2020-01-05 23:30 | NUR ---
*Patient removal of NG tube: Upon rounding, NG tube was found pulled out. NGT reinserted to right nare at 65 cm. Positive placement confirmed with auscultation and aspiration of bile contents. Pending CXR also to confirm proper placement.
[2020-01-06] VITALS (93 sets, daily range): BP systolic 139–183; BP diastolic 65–97
--- NOTE | 2020-01-06 04:14 | NUR ---
Patient bathe/linen change Patient given complete CHG bath. Skin integrity assessed for any changes. Linens an gown changed. Patient repositioned for comfort.
[2020-01-06] MEDS: MIDAZOLAM DRIP 50 mg/50mL 50 ML IV SCH (04:19)
--- NOTE | 2020-01-06 05:00 | NUR ---
Page sent to assistant distribution manager hospitalist for prn BP medication: sustaining SBPs 150s-160s
[2020-01-06] MEDS: ACCU-CHEK COMFORT CURVE STRIP VI SCH ×4 (05:55→17:32)
[2020-01-06] MEDS: InsuLIN REG 1unit/0.01ml Soln (100units/ml) SC SCH ×4 (05:55→17:29)
--- NOTE | 2020-01-06 06:03 | NUR ---
Page return: Per Trav BHAKTA, new order for hydralazine 10 mg IVP once
[2020-01-06] MEDS ORDERED: hydrALAZINE HCL 20 MG/ML VL IV ONE (06:15)
--- NOTE | 2020-01-06 06:34 | NUR ---
Per pharmacy, hydralazine is on back order and unavailable. Repaged for alternative medication.
[2020-01-06] MEDS ORDERED: cloNIDine HCL 0.1 MG TAB PO ONE (06:45)
[2020-01-06] MEDS: DexMEDEtomidine 400 MCG in D5W 5% 96 ML IV SCH ×3 (07:03→22:41)
--- NOTE | 2020-01-06 07:45 | NUR ---
Opening Shift Note Assumed care of patient, trache to mech vent. No S/S of distress/SOB or pain. RT nare NGT clamped, medication administered before shift change. See interventions for complete assessment. Bed locked on low position, side rails up x2 bed alarms on at all times, will continue to monitor for changes Q1hr and PRN.
--- NOTE | 2020-01-06 08:30 | NUR ---
Dr Ames at bedside, updated on patient's status. Patient seen and examined. Will carry out new orders.
[2020-01-06] MEDS: fentaNYL Drip 2500mCg/250mlNS 250 ML IV SCH (09:28)
--- NOTE | 2020-01-06 09:30 | NUR ---
Fentanyl and Versed turned off. Will continue to monitor.
[2020-01-06] MEDS: methylPREDNISolone SOD SUCC 125 MG/2 ML VL IV SCH (09:31)
[2020-01-06] MEDS: SODIUM CHLOR 0.9% PF (SALINE LOCK) 10ML VIAL/SYR IV SCH ×2 (09:31→21:11)
[2020-01-06] MEDS: levoFLOXacin 500MG 100 ML IV SCH (09:31)
[2020-01-06] MEDS: PANTOPRAZOLE 40 MG/10 ML VIAL INJ IV SCH (09:31)
--- NOTE | 2020-01-06 10:35 | NUR ---
Dr Hernandez at bedside, updated on patient's status. Informed of patient's hypertension. Patient seen and examined. Will carry out new orders.
[2020-01-06] MEDS ORDERED: hydrALAZINE HCL 20 MG/ML VL IV PRN (10:45)
--- NOTE | 2020-01-06 11:40 | NUR ---
Respiratory note: PT UNABLE TO TOLERATE TRACH COLLAR AT THIS TIME. PT IS GROGGY AND UNRESPONSIVE TO VERBAL COMMANDS. KENDELL BENSON AT BEDSIDE. WILL CONTINUE TO MONITOR FOR PT READINESS.
--- NOTE | 2020-01-06 13:00 | NUR ---
Patient waking up, able to follow simple command, restless, trying to sit up, reaching out for trache and tubings, trying get out of bed. Patient denies pain. Re-orientation done and re-positioned for comfort. Precedex drip increased to 0.7 mcg/kg/hr for agitation. Will continue to monitor.
--- NOTE | 2020-01-06 16:50 | NUR ---
PT PLACED ON TRACH COLLAR DID NOT TOLERATE WELL. SPO2 DROPPED HEART RATE DECREASED. RN KELLEY MADE AWARE.Respiratory note:
--- NOTE | 2020-01-06 17:20 | NUR ---
Patient blood pressure 170's/ 90's, paged hospitalist. Awaiting call back.
--- NOTE | 2020-01-06 17:52 | NUR ---
Re-paged hospitalist. Awaiting call back.
--- NOTE | 2020-01-06 18:10 | NUR ---
Received call from Dr Castañeda. Updated on patient's status. Informed of patient's HR 40's and SBP 170's to 180's, verbalized understanding. Received order for Vasotec PRN.
[2020-01-06] MEDS ORDERED: ENALAPRILAT 1.25 MG/ML-1ML VIAL IV PRN (18:15)
--- NOTE | 2020-01-06 19:20 | NUR ---
Opening Shift Note: Patient has trach/on vent. Trach is 8.0 Shiley emergently inserted by Dr. Ames on 12/31/19 related to angioedema/possible anaphylactic shock, patient previously received contrast/bactrim at another facility per physician documentation. Settings: AC rate 18, vT 500, FiO2 30%, and PEEP 5. Neuro: pupils bilateral are 3 mm/brisk; moves extremities attempting to hit/punch/kick; very agitated; + cough/gag. Cardio: SB in 40s-50s with occasional PACs; SBPs 160s-170s; pulses all palpable; no edema noted. Resp: anterior lung sounds are clear throughout; deep tracheal suctioning yellow/thick/small. GI: right nare NGT to LIS: dark green output; hypoactive BS; last BM unknown. : landrum catheter inserted on 12/31/19 for strict I/O: clear yellow. Skin: intragluteal crease has a small break in the skin: zguard and optifoam applied. IV: RUE triple lumen PICC inserted on 12/31/19 running Precedex @ 0.07. Plan to initiate trach collar when patient hemodynamically able to tolerate; patient did not tolerate trach collar today per report. Will continue to round/reposition/perform oral care prn.
--- NOTE | 2020-01-06 19:48 | NUR ---
*Patient removal of NG tube: Upon rounding, NG tube was found pulled out. NGT reinserted to right nare at 65 cm. Positive placement confirmed with auscultation and aspiration of bile contents.
[2020-01-06] MEDS: LORazepam 2MG/ML-1ML VIAL IV PRN (20:03)
[2020-01-06] MEDS: methylPREDNISolone SOD SUCC 40 MG/ML VL IV SCH (21:11)
[2020-01-06] MEDS: SACUBITRIL-VALSARTAN 24mg/26mg TAB PO SCH (21:11)
[2020-01-06] MEDS: MONTELUKAST SODIUM 10 MG TAB PO SCH (21:11)
[2020-01-07] VITALS (62 sets, daily range): BP systolic 87–157; BP diastolic 58–96
[2020-01-07] MEDS: LORazepam 2MG/ML-1ML VIAL IV PRN ×3 (04:03→11:16)
--- NOTE | 2020-01-07 04:30 | NUR ---
Patient bathe/linen change Patient given complete CHG bath. Skin integrity assessed for any changes. Partial linens changed. Patient repositioned for comfort.
[2020-01-07 05:12] LABS: Basophils # (auto) 0 10 ^3/uL (0-0.2); Basophils % (auto) 0.3 % (0.0-2.0); Eosinophils # (auto) 0 10 ^3/uL (0-0.8); Hematocrit 42.1 % (36.0-46.0); Hemoglobin 14.8 g/dL (12.2-16.2); Lymphocytes # (auto) 1.2 10 ^3/uL (0.4-5.4); Lymphocytes % (auto) 7.2 % (10.0-50.0); Mean Corpuscular Hgb Conc. 35.2 g/dL (32.0-36.0); Mean Corpuscular Volume 96.6 fL (80.0-100.0); Monocytes # (auto) 0.7 10 ^3/uL (0-1.3); Monocytes % (auto) 3.9 % (0.0-12.0); Neutrophils # (auto) 15.3 10 ^3/uL (1.6-8.6); Neutrophils % (auto) 88.6 % (37.0-80.0); Platelet Count (auto) 213 10^3/uL (140-450); Red Blood Cells 4.36 10^6/uL (4.0-5.20); Red Cell Distribution Width 12.9 % (11.8-14.3); White Blood Cell 17.2 10^3/uL (4.4-10.8)
[2020-01-07 05:33] LABS: BUN/Creatinine Ratio 31.7; Calcium 8.7 mg/dL (8.5-10.1); Potassium 3.9 mmol/L (3.5-5.1)
[2020-01-07] MEDS: InsuLIN REG 1unit/0.01ml Soln (100units/ml) SC SCH ×4 (06:00→18:48)
[2020-01-07] MEDS: ACCU-CHEK COMFORT CURVE STRIP VI SCH ×4 (06:00→18:30)
--- NOTE | 2020-01-07 07:15 | NUR ---
REPORT RECEIVED ASSUMING CARE
--- NOTE | 2020-01-07 08:00 | NUR ---
DECREASED PRECEDEX TO 0.6 MCG/KG/HR. PATIENT RELAXED, ABLE TO FOLLOW SOME COMMANDS BUT NOT ALL AND CANNOT KEEP EYES OPEN. SEE VS SPREADSHEET FOR BP AT THIS TIME. ASSESSMENT COMPLETED SEE INTERVENTIONS.
--- NOTE | 2020-01-07 08:48 | NUR ---
RN WITNESSED PATIENT SITTING UP IN BED AWAKE AND GRABBING VENTILATOR AND BANGING IT AGAINST THE BED, RN RAN INTO ROOM AND STOPPED PATIENT, SAFETY MAINTAINED, TUBES/LINES REMAINS INTACT. ENCOURAGED PATIENT TO RELAX, PATIENT MOUTHING THE WORD "WATER". RN SWABBED MOUTH WITH WATER, PATIENT KEPT MOUTHING "MORE WATER". HOB ELEVATED PRIOR TO SWABBING MOUTH. PATIENT RELAXED AND COMFORTABLE. PRECEDEX REMAINS ON. SPOKE WITH DR RO, RN RECOMMEDED SIMV MODE, NEW ORDER FOR SIMV RATE OF 10 AND PS 8. NO ABG. RT MARYAN AWARE.
--- NOTE | 2020-01-07 08:55 | NUR ---
Respiratory note: VENT CHANGE PER FROM AC TO SIMV RR 10,VT 500,PEEP 5, PSV 8, 30% FIO2. NO ABG NEEDED.
--- NOTE | 2020-01-07 09:23 | NUR ---
TOLERATING SIMV WELL
[2020-01-07] MEDS: SACUBITRIL-VALSARTAN 24mg/26mg TAB PO SCH ×2 (09:34→20:40)
[2020-01-07] MEDS: SODIUM CHLOR 0.9% PF (SALINE LOCK) 10ML VIAL/SYR IV SCH ×2 (09:34→20:40)
[2020-01-07] MEDS: levoFLOXacin 500MG 100 ML IV SCH (09:34)
[2020-01-07] MEDS: methylPREDNISolone SOD SUCC 40 MG/ML VL IV SCH ×2 (09:34→20:40)
[2020-01-07] MEDS: PANTOPRAZOLE 40 MG/10 ML VIAL INJ IV SCH (09:34)
--- NOTE | 2020-01-07 10:10 | NUR ---
Respiratory note: TOOK PATIENT OFF VENT AND PLACED ON TRACH COLLAR, 30% COOL AEROSOL. PATIENT IS WAKING UP, FOLLOWING COMMANDS, AND TOLERATING WELL. HR 75, RR 16, SPO2 97%, BP 95/63.
--- NOTE | 2020-01-07 10:20 | NUR ---
AT 1010 RT MARYAN PLACED ON TRACH COLLAR 30% FIO2, VS STABLE. PRECEDEX OFF AT THIS TIME. AWAKE ALERT TO PERSON AND MOUTHING WORDS APPROPRIATELY. TOLERATING WELL. CONTINUE TO MONITOR.
--- NOTE | 2020-01-07 11:16 | NUR ---
ATIVAN GIVEN ORDERED FOR ANXIETY, PATIENT RESTLESS, BANGING ON THE SIDE RAILS, ALERT/ORIENTED X4 DENIES ANY PAIN, MOUTHING "WANT THIS OUT" POINTING TO TRACH. RIGHT NARE NGT OUT UPON RN WALKING INTO ROOM. DR RO AWARE PATIENT ON TRACH COLLAR AND AWARE PATIENT IS REQUESTING FOOD/WATER. PER PATIENT NEEDS SWALLOW EVAL FIRST. SPOKE WITH RT MARYAN AND PATIENT MUST HAVE SPEAKING VALVE PRIOR TO SWALLOW EVAL PER RT DEPARTMENT. VS STABLE CONT TO MONITOR. PATIENT CALMED DOWN AND ASKED NECKTIE STITCHER WARREN TO GET BELONGINGS OUT OF SAFE INCLUDING CELL PHONE.
--- NOTE | 2020-01-07 11:54 | NUR ---
DR RO AT BEDSIDE , SPOKE WITH AND EXAMINED PATIENT. GAVE OK FOR RT TO PLACE PATIENT ON PASSY SUHAIL SPEAKING VALVE AND TO HAVE A SWALLOW EVALUATION AFTER. RT MARYAN PANIAGUA.
[2020-01-07] MEDS ORDERED: POTASSIUM CHLORIDE 20 MEQ, LIDOCAINE 1% (LOCAL ANESTH.) 2 ML in SODIUM CHL 0.9% 100 ML IV ONE (12:00)
[2020-01-07] MEDS ORDERED: FUROSEMIDE 20 MG/2 ML VIAL IV ONE (12:00)
--- NOTE | 2020-01-07 12:13 | NUR ---
Nutrition Followup Notes Wt: 74.0 kg Pt`s awake on trach collar with RN by bedside. Pt is currently NPO with no new diet orders, waiting for MD diet order. Per RN will discuss plans for initiating TPN with MD today. Est energy needs 9092-5411 kcal (20-25 kcal/kg BW 72.2kg) Est protein needs 58-72g (0.8-1g/kg BW 72.2kg) Will reassess prn. Labs: GLU 163 H, Alb 2.3 L, rest lab wnl BM: Pt has no BM reported per RN doc Skin: BS 13 mod risk, full details in daycare teacher note PES: Inadequate oral intake aeb pt with NPO diet order r/t current medical condition Comments Will continue to monitor NPO status, skin status, pertinent labs and weight trends. Will f/u in 2-3 days. Rec: 1) Continue to monitor NPO status, labs, skin 2) refer pt to [facility]PD on Dc 3) Continue current plan of care. Consider initiating TF of Glucerna 1.2 when medically feasible with a goal rate of 60 ml/hr
--- NOTE | 2020-01-07 14:38 | NUR ---
OOB TO CHAIR WITH PT, TOLERATED VERY WELL. VS STABLE. REMAINS ON 30% FIO2 TRACH COLLAR
--- NOTE | 2020-01-07 14:55 | NUR ---
Respiratory note: TRIED PLACING SPEAKING VALVE. PATIENT DID NOT TOLERATE WELL AND ASKED TO REMOVE IMMEDIATELY. KENDELL VIVAR INFORMED.
--- NOTE | 2020-01-07 15:56 | NUR ---
SWALLOW EVALUATION. PATIENT HAS NATURAL TEETH. PATIENT VERY ANXIOUS. ABLE TO FOLLOW COMMANDS. DUE TO TRACHEOSTOMY, PATIENT DID NOT SPEAK. PATIENT COUGHED ON TRIAL OF THIN LIQUIDS. PATIENT ABLE TO TOLERATE PUREE DIET TEXTURE WITH NECTAR THICKENED LIQUIDS WITH NO OVERT SIGNS OR SYMPTOMS OF ASPIRATION. NURSING NOTIFIED.
--- NOTE | 2020-01-07 16:17 | NUR ---
SPOKE WITH DR RO, GAVE ORDER FOR XANAX 0.5MG PO Q8H PRN FOR ANXIETY AND TO DC ATIVAN. DR AWARE PATIENT WAS UP TO CHAIR X 2 HRS AND SWALLOW EVAL WAS COMPLETED WITH PUREED DIET THICKENED LIQUIDS RECOMMENDED FROM SPEECH THERAPY.
--- NOTE | 2020-01-07 16:27 | NUR ---
SPOKE WITH BOYFRIEND INDIGO HITCHCOCK, WILL UPDATE NEW NUMBER AND HAD PASSWORD. UPDATED NEW PHONE NUMBER PER REQUEST.
--- NOTE | 2020-01-07 16:30 | NUR ---
Respiratory note: ATTEMPTED TO PLACE SPEAKING VALVE AGAIN. PT DID NOT TOLERATE WELL AND ASKED FOR IT TO BE REMOVED IMMEDIATELY. SHE ASKED TO TRY AGAIN LATER. KENDELL VIVAR INFORMED.
[2020-01-07] MEDS: ALPRAZolam 0.5 MG TAB PO PRN (16:42)
--- NOTE | 2020-01-07 19:30 | NUR ---
REPORT RECEIVED, ASSUMED CARE.
[2020-01-07] MEDS: MONTELUKAST SODIUM 10 MG TAB PO SCH (20:40)
[2020-01-07] MEDS: MORPHINE SULF INJ 2 MG/ML SYRINGE 1ML IV PRN (20:48)
--- NOTE | 2020-01-07 20:58 | NUR ---
PAGE OUT FOR HOSPITALIST REGARDING PT PAIN.
--- NOTE | 2020-01-07 21:21 | NUR ---
CALLBACK HOSPITALIST, ORDERS OBTAINED. WILL CONT TO MONITOR AND GIVE IN REPORT.
[2020-01-07] MEDS: HYDROcodone-ACET 5/325MG TAB PO PRN (23:55)
[2020-01-08] VITALS (15 sets, daily range): BP systolic 101–134; BP diastolic 55–79
[2020-01-08] MEDS: ACCU-CHEK COMFORT CURVE STRIP VI SCH ×4 (00:20→17:21)
[2020-01-08] MEDS: ALPRAZolam 0.5 MG TAB PO PRN ×2 (01:07→09:59)
[2020-01-08 05:32] LABS: Potassium 4.1 mmol/L (3.5-5.1)
[2020-01-08 05:33] LABS: Basophils # (auto) 0.1 10 ^3/uL (0-0.2); Basophils % (auto) 0.2 % (0.0-2.0); Eosinophils # (auto) 0 10 ^3/uL (0-0.8); Hematocrit 40.1 % (36.0-46.0); Hemoglobin 14.2 g/dL (12.2-16.2); Lymphocytes # (auto) 0.9 10 ^3/uL (0.4-5.4); Lymphocytes % (auto) 3.8 % (10.0-50.0); Mean Corpuscular Hemoglobin 34.7 pg (28.0-32.0); Mean Corpuscular Hgb Conc. 35.3 g/dL (32.0-36.0); Mean Corpuscular Volume 98.1 fL (80.0-100.0); Monocytes # (auto) 1.2 10 ^3/uL (0-1.3); Platelet Count (auto) 183 10^3/uL (140-450); Red Blood Cells 4.09 10^6/uL (4.0-5.20); Red Cell Distribution Width 13.3 % (11.8-14.3); White Blood Cell 24.2 10^3/uL (4.4-10.8)
[2020-01-08] MEDS: InsuLIN REG 1unit/0.01ml Soln (100units/ml) SC SCH ×4 (06:45→17:26)
--- NOTE | 2020-01-08 06:46 | NUR ---
scale on bed does not work.
--- NOTE | 2020-01-08 07:40 | NUR ---
PT. ASSESSED, NO RESP. DISTRESS OR SOB. NOTED. PT. IS AWAKE AND ALERT, FOLLOW COMMAND. BS. ARE SLIGHTLY COARSE. SX'D TRACH. FOR SMALL AMOUNT OF BLOOD TINGED SECRETIONS. CHANGED DRAINAGE GAUZE AT THIS TIME, PT. HAS SOME BLOODY SECRETIONS NOTED ON DRAINAGE GAUZE. CONTINUE TO MONITOR RESP. STATUS AND O2 SATS. Addendum: 01/08/20 at 0820 by Arely Flanagan RT Amended: Links added.
--- NOTE | 2020-01-08 08:00 | NUR ---
OPEN RECEIVED REPORT FROM NIGHT RN. ASSUMED CARE OF ICU PATIENT, FULL CODE STATUS. PATIENT A & O X4, CALM AND FATIGUED AT THIS TIME. PATIENT HAS UNCUFFED TRACH WITH TRACH COLLAR AT 35% WITH MIST MASK TO SITE. PATIENT ON PUREED DIET. WAITING FOR BREAKFAST TO COME THIS MORNING. NY TO GRAVITY. RIGHT UPPER ARM PICC LINE PATENT AND INTACT, USED PORTS FLUSHED AT THIS TIME. SEE SHIPPING RECEIVING CLERK FOR FURTHER PATIENT INFORMATION. CONTINUE CARE.
[2020-01-08] MEDS: SODIUM CHLOR 0.9% PF (SALINE LOCK) 10ML VIAL/SYR IV SCH ×2 (09:58→21:37)
[2020-01-08] MEDS: methylPREDNISolone SOD SUCC 40 MG/ML VL IV SCH ×2 (09:58→21:37)
[2020-01-08] MEDS: SACUBITRIL-VALSARTAN 24mg/26mg TAB PO SCH ×2 (09:58→21:37)
[2020-01-08] MEDS: PANTOPRAZOLE 40 MG/10 ML VIAL INJ IV SCH (09:58)
[2020-01-08] MEDS: levoFLOXacin 500MG 100 ML IV SCH (09:58)
[2020-01-08] MEDS: HYDROcodone-ACET 5/325MG TAB PO PRN ×2 (10:30→17:21)
[2020-01-08] MEDS ORDERED: FUROSEMIDE 40 MG TAB PO ONE (11:15)
[2020-01-08] MEDS ORDERED: POTASSIUM CHL 20 Meq TABLET PO ONE (11:15)
--- NOTE | 2020-01-08 11:15 | NUR ---
ATTEMPTED TO PLUG TRACHEOSTOMY TUBE WITH TRACH BUTTON, PER DR. RO'S VERBAL ORDER. PLACED BUTTON ON PT. , PT. GIVEN 2L NASAL CANNULA. SP02 95%, PT. IMMEDIATLEY WANTS THE BUTTON OFF,STATES SHE CAN'T BREATH, AND GETS VERY ANXIOUS. TOOK BUTTON OFF, PT. CALMED DOWN, AND WAS WILLING TO TRY ONE MORE TIME. ATTEMPTED A SECOND TIME AND PT. BECAME ANXIOUS ONCE AGAIN. PLACED BACK ON TRACH COLLAR AT 30% AFTER BUTTON REMOVED. DR. RO NOTIFIED.
--- NOTE | 2020-01-08 11:25 | NUR ---
DR. RO AT BEDSIDE: DOWNGRADE TO [facility] ORDERS GIVEN MD UPDATED ON PT'S CURRENT STATUS, LABS AND POC FOR TODAY. ORDERS GIVEN AND TO BE CARRIED OUT. CONTINUE CARE. SEE EMAR FOR TIMES MEDS GIVEN.
[2020-01-08] MEDS ORDERED: FUROSEMIDE 20 MG/2 ML VIAL IV ONE (11:30)
[2020-01-08] MEDS: MORPHINE SULF INJ 2 MG/ML SYRINGE 1ML IV PRN ×3 (11:30→21:04)
[2020-01-08] MEDS ORDERED: FUROSEMIDE 20 MG/2 ML VIAL ONE (11:39)
--- NOTE | 2020-01-08 12:40 | NUR ---
TRANSFER TO [facility] ROOM 264 REPORT GIVEN TO KENDELL SMITH. PATIENT TAKEN IN BED TO [facility]. A & O X4 CALM AND FOLLOWS COMMANDS. TRANSFERRED WITH OXYGEN AND TELE TRANSPORT MONITOR. ALL PT'S BELONGINGS SENT WITH PATIENT. TRANSFER CARE.
--- NOTE | 2020-01-08 13:50 | NUR ---
Transfer to [facility] PERRY MCDERMOTT admitted to [facility] via hospital bed on flight engineer performance qualified, and portable 02. Patient connected to unit monitoring and oxygen, and weighed by bedscale. Patient oriented to ARAM CORDERO RN primary RN, unit, room, bed, and unit policies regarding patient care and visiting hours. All questions and concerns addressed, patient verbalized understanding. Lunch tray provided. Sent food requested to kitchen per patient request.
--- NOTE | 2020-01-08 14:05 | NUR ---
PT at the bedside , patient walking with PT via using front wheel walker, connected to O2 tank.
--- NOTE | 2020-01-08 14:27 | NUR ---
Patient walked 6 round around nursing station, sitting at the edge of the bed for mouth care. Paged Dr. Salcedo regarding pain management. Pain 10/10 after walking and not due for Bradford or Morphine yet. Waiting MD to call back.
[2020-01-08] MEDS: ALBUTEROL SULF 2.5 MG/0.5ML(0.5%) NEB SOLN NEB SCH ×3 (14:55→21:56)
[2020-01-08] MEDS: IPRATROPIUM BROM 0.5 MG/2.5ML INH SOL NEB SCH ×3 (14:55→21:56)
--- NOTE | 2020-01-08 15:00 | NUR ---
Provided pudding and ice cream per patient requested.
--- NOTE | 2020-01-08 15:24 | NUR ---
Patient went back to the bed by herself, no N/V or aspiration noted. Watching TV at this time, will give her Morphine for pain management.
--- NOTE | 2020-01-08 17:00 | NUR ---
Patient using bedside commode for BM, brown color, soft. Went back to bed by using walker for standing and patient transfer herself on the bed. Standby assist at this time.
--- NOTE | 2020-01-08 18:03 | NUR ---
Patient resting on the bed, watching TV at this time. Had Dinner around 30%, no N/V or aspiration noted.
--- NOTE | 2020-01-08 19:15 | NUR ---
OPENING SHIFT RECEIVED REPORT FROM DAY SHIFT RN. ASSUMED CARE OF PATIENT. PATIENT IN BED WATCHING TV WITH NO SIGNS OR SYMPTOM SOB PAIN OR DISTRESS. CURRENTLY ON 8L 30% 02 VIA TRACH COLLAR, 02 SAT - 98%. RIGHT UPPER ARM PICC TLC - CLEAN/DRY/INTACT. NY - PATENT AND HUNG TO GRAVITY. REPOSITIONED FOR COMFORT. BED IN LOWEST POSITION, SIDE RAILS UP X2, CALL LIGHT WITHIN REACH. WILL CONTINUE TO MONITOR.
--- NOTE | 2020-01-08 20:40 | NUR ---
PM CARE / BEDSIDE COMMODE ASSISTED PATIENT TO BEDSIDE COMMODE. PATIENT ABLE TO AMBULATE WITH ASSIST. PM CARE PERFORMED AFTER BEDSIDE COMMODE USE. CHG WIPES AND WASH CLOTHS USED. PARTIAL LINEN CHANGE AND GOWN CHANGED. SKIN REASSESSED AT THIS TIME. TRACH AND NY CARE PERFORMED. BED IN LOWEST POSITION, SIDE RAILS UP X2, CALL LIGHT WITHIN REACH. WILL CONTINUE TO MONITOR.
[2020-01-08] MEDS: MONTELUKAST SODIUM 10 MG TAB PO SCH (21:37)
[2020-01-09] VITALS: BP 140/84
[2020-01-09] MEDS: ACCU-CHEK COMFORT CURVE STRIP VI SCH ×4 (00:04→17:59)
[2020-01-09] MEDS: InsuLIN REG 1unit/0.01ml Soln (100units/ml) SC SCH ×4 (00:04→17:59)
[2020-01-09] MEDS: ALPRAZolam 0.5 MG TAB PO PRN ×3 (01:46→23:27)
--- NOTE | 2020-01-09 01:47 | NUR ---
ANXIETY PATIENT RESTLESS, UNABLE TO SLEEP WITH RR IN THE HIGH 28'S. 02 SAT - 91%. PATIENT MOUTHED, " I WANT TO GO HOME" XANAX GIVEN PER EMAR. WILL CONTINUE TO MONITOR.
[2020-01-09 03:37] LABS: Basophils # (auto) 0 10 ^3/uL (0-0.2); Eosinophils # (auto) 0 10 ^3/uL (0-0.8); Hematocrit 40.4 % (36.0-46.0); Hemoglobin 14.1 g/dL (12.2-16.2); Lymphocytes # (auto) 0.9 10 ^3/uL (0.4-5.4); Lymphocytes % (auto) 5.9 % (10.0-50.0); Mean Corpuscular Hemoglobin 34.2 pg (28.0-32.0); Mean Corpuscular Volume 97.5 fL (80.0-100.0); Monocytes # (auto) 0.7 10 ^3/uL (0-1.3); Monocytes % (auto) 4.3 % (0.0-12.0); Neutrophils # (auto) 13.5 10 ^3/uL (1.6-8.6); Neutrophils % (auto) 89.8 % (37.0-80.0); Platelet Count (auto) 185 10^3/uL (140-450); Red Blood Cells 4.14 10^6/uL (4.0-5.20); Red Cell Distribution Width 13.4 % (11.8-14.3); White Blood Cell 15.1 10^3/uL (4.4-10.8)
[2020-01-09 03:55] LABS: BUN/Creatinine Ratio 23.1; Calcium 8.7 mg/dL (8.5-10.1); Potassium 3.8 mmol/L (3.5-5.1)
[2020-01-09 04:00] VITALS: BP 142/79
[2020-01-09] MEDS: IPRATROPIUM BROM 0.5 MG/2.5ML INH SOL NEB SCH ×5 (06:35→23:09)
[2020-01-09] MEDS: ALBUTEROL SULF 2.5 MG/0.5ML(0.5%) NEB SOLN NEB SCH ×5 (06:35→23:09)
--- NOTE | 2020-01-09 07:36 | NUR ---
END OF SHIFT REPORT GIVEN TO DAY SHIFT RN. CARE ENDORSED.
--- NOTE | 2020-01-09 07:45 | NUR ---
OPENING SHIFT NOTE Received report from NOC RNEthan. Assumed care of patient. Received patient lying in bed, connect to bedside monitor with alarms in place. Patient is A&Ox4, denies pain and with no s/s of distress noted. Patient with #[address] with trach mask at 8L 30% with O2 sats >92%. Patient with Right upper arm TL PICC line in place, all ports flush and are patent. Patient able to get OOBTC with minimal assist. Bed in lowest position, rails x2 up and call light within reach. Updated on plan of care. Will continue to monitor.
[2020-01-09 08:00] VITALS: BP 138/71
[2020-01-09] MEDS: MORPHINE SULF INJ 2 MG/ML SYRINGE 1ML IV PRN ×3 (09:07→21:01)
--- NOTE | 2020-01-09 11:00 | NUR ---
MD Dr Salcedo at bedside to see patient. Orders received.
[2020-01-09] MEDS ORDERED: FLUCONAZOLE 200MG/100ML 100 ML IV ONE (11:30)
--- NOTE | 2020-01-09 11:30 | NUR ---
TRACH CARE DONE AT THIS TIME, CLEANED SITE, CHANGED GAUZE, AND CLEANED INNER CANNULA. PT. HAS MOD. AMOUNT OF BLOODY SECRETIONS, BLOOD ALSO NOTED IN THE INNER CANNULA. ATTEMPTED SPEAKING VALVE AFTER TRACH CARE, BUT PT. DOES NOT TOLERATE, SHE SAYS SHE CAN'T BREATH AND WILL TAKE IT OFF HERSELF. PT. IS CURRENTLY ON COOL AERSOL AT 35%, SPO2 98%.
[2020-01-09] MEDS: PANTOPRAZOLE 40 MG/10 ML VIAL INJ IV SCH (11:36)
[2020-01-09] MEDS: FUROSEMIDE 40 MG TAB PO SCH (11:37)
[2020-01-09] MEDS: POTASSIUM CHL 20 Meq TABLET PO SCH (11:37)
[2020-01-09] MEDS: SACUBITRIL-VALSARTAN 24mg/26mg TAB PO SCH ×2 (11:37→21:01)
[2020-01-09] MEDS: levoFLOXacin 500MG 100 ML IV SCH (11:37)
[2020-01-09] MEDS: SODIUM CHLOR 0.9% PF (SALINE LOCK) 10ML VIAL/SYR IV SCH ×2 (11:37→23:28)
[2020-01-09] MEDS: HYDROcodone-ACET 5/325MG TAB PO PRN (11:52)
[2020-01-09 12:00] VITALS: BP 156/87
--- NOTE | 2020-01-09 12:30 | NUR ---
LANDRUM Per order received by Dr Hernandez, landrum catheter to be discontinued. Offered to remove landrum at this time. Patient refused and asked to have removed later due to being afraid of having to get in and out of bed to BSC.
--- NOTE | 2020-01-09 12:38 | NUR ---
WOUND CARE NOTE: Wound care in to see patient for skin integrity monitoring. Patient has been downgraded to SDU. Patient is resting in SDU bed in Rm. 264. Patient is on O2 via trach collar. Patient is in no stated pain at this time and she appears to be in no pain using Do [place] Faces Pain Scale. Patient is able to transfer self to bedside commode with stand by assistance, no wound noted per bedside nurse. Patient also able to walk around nurse station with PT assistance per RN. Her Aravind score is 15. RECOMMENDATION:continuation of all wound care orders prescribed by MD, continue with skin/wound preventative plan of care, continue monitoring by wound care while Aravind score is <18.
--- NOTE | 2020-01-09 14:50 | NUR ---
Nutrition Followup Notes Wt: 74.0 kg Pt`s was with medical personnel by bedside when rounded this morning. Pt is with a Pureed diet, appetite is poor aeb ave 32% PO intake over 4 meals per RN doc. Est energy needs 2993-9781 kcal (20-25 kcal/kg BW 72.2kg) Est protein needs 58-72g (0.8-1g/kg BW 72.2kg) Will reassess prn. Labs: GLU 168 H, Alb 2.3 L, rest lab wnl BM: Pt had 1 BM on 01/08 per RN doc Skin: BS 15 mod risk, full details in home care administrator note PES: Inadequate oral intake aeb pt with NPO diet order r/t current medical condition Comments Will continue to monitor NPO status, skin status, pertinent labs and weight trends. Will f/u in 3-5 days. Rec: 1) Continue to monitor NPO status, labs, skin 2) Refer pt to [facility]PD on Dc 3) Continue current plan of care. Consider initiating TF of Glucerna 1.2 when medically feasible with a goal rate of 60 ml/hr
[2020-01-09 16:00] VITALS: BP 144/88
--- NOTE | 2020-01-09 19:02 | NUR ---
END OF SHIFT NOTE Patient sitting up in bed after eating dinner. Patient is A&Ox4, denies pain and no s/s of distress noted. Patient still with trach #8.0 Shiley with trach collar in place at 8L 30% fiO2. Patient still with landrum catheter, wants to wait till later tonight to have removed. Patient able to get to BSC with minimal assist. Patient unable to tolerate speaking valve or cap on trach today. Patient still coughing up moderated amount of pink tinged sputum via trach. No suctioning needed. RT is aware. Report to be given to oncoming NOC RN, Amira.
[2020-01-09 20:00] VITALS: BP 136/94
--- NOTE | 2020-01-09 21:00 | NUR ---
Pt stating severe pain to throat from coughing, bright red mucus noted from around trach. RT was paged and is at bedside for assist with mucus management. Nighttime Singulair given along with Morphine for pain. Pt is up in chair, anxious and crying at this time. Encouraged to relax and try to relax her throat instead of forcing the cough. Will continue to monitor.
[2020-01-09] MEDS: MONTELUKAST SODIUM 10 MG TAB PO SCH (21:01)
--- NOTE | 2020-01-09 21:15 | NUR ---
Respiratory note: PAGED TO BEDSIDE, FOUND PT CRYING, ANXIOUS. RN AT BEDSIDE. PT COUGHING, LARGE AMOUNTS OF BLOODY SECRETIONS NOTED AROUND TRACH FLANGE AND IN TRACH COLLAR. SUCTIONED FOR NO RETURN. TRACH AND STOMA CHECKED, SUTURES IN PLACE, NO EXCESSIVE BLEEDING NOTED. PT INSTRUCTED TO SLOW HER BREATHING AND RELAX. CUFF INFLATED AND PT SUCTIONED FOR NO RETURN OF SECRETIONS. CUFF DEFLATED IMMEDIATELY AFTER SUCTIONING. PT STILL COUGHING. GAUZE AND TRACH COLLAR CHANGED, PT APPEARS LESS ANXIOUS, WILL CONTINUE TO MONITOR.
--- NOTE | 2020-01-09 21:15 | NUR ---
Pt having panic attack. RT at bedside. RN and RT assuring and comforting pt. RT called for trach and suction care.
--- NOTE | 2020-01-09 22:00 | NUR ---
Pt in bed and resting at this time. When asked if she felt better she said a little bit and started to cry. Pt positioned with pillows. Now more comfortable. Xanax is not due at this time. Pt also asked nurse to keep Mcleod until morning due to lasix. Will continue to monitor.
[2020-01-10] VITALS (7 sets, daily range): BP systolic 110–149; BP diastolic 63–92
[2020-01-10] MEDS: ACCU-CHEK COMFORT CURVE STRIP VI SCH ×5 (05:35→23:56)
[2020-01-10] MEDS: MORPHINE SULF INJ 2 MG/ML SYRINGE 1ML IV PRN ×6 (05:35→23:50)
[2020-01-10] MEDS: InsuLIN REG 1unit/0.01ml Soln (100units/ml) SC SCH ×5 (06:00→23:55)
[2020-01-10 06:54] LABS: Basophils # (auto) 0 10 ^3/uL (0-0.2); Basophils % (auto) 0.1 % (0.0-2.0); Eosinophils # (auto) 0.1 10 ^3/uL (0-0.8); Eosinophils % (auto) 0.9 % (0.0-7.0); Hematocrit 41.3 % (36.0-46.0); Hemoglobin 14.3 g/dL (12.2-16.2); Lymphocytes # (auto) 3.1 10 ^3/uL (0.4-5.4); Mean Corpuscular Hgb Conc. 34.7 g/dL (32.0-36.0); Monocytes # (auto) 1.3 10 ^3/uL (0-1.3); Neutrophils # (auto) 9.7 10 ^3/uL (1.6-8.6); Nucleated Red Blood Cells % 0.2 %; Platelet Count (auto) 168 10^3/uL (140-450); Red Blood Cells 4.21 10^6/uL (4.0-5.20); Red Cell Distribution Width 13.3 % (11.8-14.3); White Blood Cell 14.2 10^3/uL (4.4-10.8)
--- NOTE | 2020-01-10 07:00 | NUR ---
Mcleod removed, pt tolerated well. Resting comfortably at this time watching TV. No S/S of distress.
[2020-01-10] MEDS: ALBUTEROL SULF 2.5 MG/0.5ML(0.5%) NEB SOLN NEB SCH ×5 (07:06→22:59)
[2020-01-10] MEDS: IPRATROPIUM BROM 0.5 MG/2.5ML INH SOL NEB SCH ×5 (07:06→22:59)
[2020-01-10 07:25] LABS: Potassium 3.2 mmol/L (3.5-5.1)
[2020-01-10 07:29] LABS: Calcium 8.7 mg/dL (8.5-10.1)
--- NOTE | 2020-01-10 07:30 | NUR ---
REPORT REPORT RECEIVED FROM CORDELL RNLENORE. PT RESTING IN BED, WITH EYES CLOSED AND IN NO APPARENT DISTRESS. CONTINUE TO MONITOR.
--- NOTE | 2020-01-10 08:30 | NUR ---
IN FOR ASSESSMENT AND PT WANTS TO WAIT UNTIL SHE FINISHES HER BREAKFAST.
--- NOTE | 2020-01-10 08:50 | NUR ---
ASSESSMENT PT AWAKE AND A/O X4. ABLE TO MOVE ALL EXTREMITIES AND REPOSITION HERSELF IN BED. LUNGS CLEAR AND DIMINISHED THROUGHOUT. ON TRACH COLLAR AT 30% O2 AND #8 SHILEY TRACH. O2 SAT OF 97%. TELE SR 87. PALPABLE PULSES TO ALL EXTREMITIES WITH NO EDEMA NOTED. ABD SOFT WITH + BOWEL SOUNDS. LAST BM WAS EARLIER TODAY ON THE CONFERENCE RESERVATIONIST. VOIDS VIA BSC. SKIN INTACT. PT WITH C/O ABD PAIN 10/0. WILL CHECK MD ORDERS FOR PAIN MED. CONTINUE TO MONITOR.
[2020-01-10] MEDS: SODIUM CHLOR 0.9% PF (SALINE LOCK) 10ML VIAL/SYR IV SCH ×2 (09:25→21:02)
[2020-01-10] MEDS: FLUCONAZOLE 200MG/100ML 100 ML IV SCH (09:25)
[2020-01-10] MEDS: PANTOPRAZOLE 40 MG/10 ML VIAL INJ IV SCH (09:25)
[2020-01-10] MEDS: predniSONE 20 MG TAB PO SCH (09:26)
[2020-01-10] MEDS: POTASSIUM CHL 20 Meq TABLET PO SCH (09:26)
[2020-01-10] MEDS: FUROSEMIDE 40 MG TAB PO SCH (09:32)
--- NOTE | 2020-01-10 09:46 | NUR ---
pain Medicated pt with Morphine 1 mg iv for d/o abd pain 01/23. Instructed pt not to get OOB without assistance as the pain med will make her groggy. She expressed understanding. Continue to monitor.
--- NOTE | 2020-01-10 10:00 | NUR ---
ELIMINATION/MOBILITY PT UP TO THE BSC AND VOIDED QS. PT A LITTLE UNSTEADY WHEN SHE GOT UP TOO FAST. INSTRUCTED HER TO CHANGE POSITION SLOWLY TTO PREVENT FEELINGS OF DIZZINESS AND NOT TO GET UP WITHOUT ASSISTANCE. SHE EXPRESSED UNDERSTANDING.
[2020-01-10] MEDS: levoFLOXacin 500MG 100 ML IV SCH (10:52)
[2020-01-10] MEDS ORDERED: POTASSIUM EFFERVESENT TAB 25 MEQ PO ONE (11:30)
[2020-01-10] MEDS ORDERED: DOCUSATE SOD 100 MG CAP PO PRN (11:30)
--- NOTE | 2020-01-10 11:30 | NUR ---
MD VISIT PT SEEN AND EXAMINED BY DR RO. PT BEING DOWNGRADED TO TELEMETRY.
--- NOTE | 2020-01-10 11:53 | NUR ---
PT UP AND AMBULATING , WITH PHYSICAL THERAPY, AROUND THE NURSES STATION.
[2020-01-10] MEDS: SACUBITRIL-VALSARTAN 24mg/26mg TAB PO SCH ×2 (13:14→21:01)
[2020-01-10] MEDS ORDERED: CARVEDILOL 3.125 MG TAB PO ONE (13:30)
[2020-01-10] MEDS ORDERED: CARVEDILOL 3.125 MG TAB ONE (13:39)
--- NOTE | 2020-01-10 14:54 | NUR ---
PAIN PT WITH C/O PAIN TO HER THROAT, LOWER BACK AND BAND ACROSS LOWER ABD. MEDICATED WITH MORPHINE 1 MG IV. ASSISTED PT BACK TO BED FROM THE CHAIR. TOLERATED WELL. ADVISED PT NOT TO GET OOB WITHOUT ASSISTANCE PAIN MED WILL MAKE HER DROWSY.
--- NOTE | 2020-01-10 15:24 | NUR ---
PAIN 4/10
--- NOTE | 2020-01-10 16:00 | NUR ---
Respiratory note: PT ON AND OFF PMV THROUGHOUT THE DAY. PT TOLERATED WELL WITH COACHING IN SMALL PERIODS OF TIME.
--- NOTE | 2020-01-10 19:05 | NUR ---
HEART RATE 135 WITH PT UP AT THE SINK BRUSHING HER TEETH. REQUESTED THAT PT RETURN TO BED AFTER DONE BRUSHING HER TEETH. SHE STATED SHE WOULD.
--- NOTE | 2020-01-10 20:00 | NUR ---
Opening Shift Note Assumed care of patient, awake and alert. No S/S of distress/SOB or pain. Instructed on POC and to call for assist PRN, will continue to monitor for changes.
[2020-01-10] MEDS: MONTELUKAST SODIUM 10 MG TAB PO SCH (21:01)
[2020-01-10] MEDS: CARVEDILOL 3.125 MG TAB PO SCH (21:01)
[2020-01-10] MEDS: ALPRAZolam 0.5 MG TAB PO PRN (21:02)
[2020-01-10] MEDS: HYDROcodone-ACET 5/325MG TAB PO PRN (21:22)
--- NOTE | 2020-01-10 23:31 | NUR ---
PATIENT ARRIVED ON UNIT @2331. ASSUMED CARE OF PATIENT MIROSLAVA GROVER RN. PATIENT IS A/OX4. PATIENT HAS NO S/S OF RESPIRATORY DISTRESS. PATIENT DOES C/O LOWER BACK PAIN AND THROAT PAIN WHICH SHE STATES IS 10/10. WILL TREAT WITH PRN MORPHINE. INSTRUCTED THE PATIENT ON POC AND TO CALL FOR ASSIST PRN. WILL CONTINUE TO MONITOR FOR CHANGES Q1HR AND PRN.
--- NOTE | 2020-01-10 23:32 | NUR ---
Pt stable, alert and oriented. Ambulating well. Transferred to room 279A via wheelchair and care endorsed to Jerson RDZ. No S/S of distress at time of transfer.
[2020-01-11 05:00] VITALS: BP 131/91
[2020-01-11] MEDS: InsuLIN REG 1unit/0.01ml Soln (100units/ml) SC SCH ×4 (06:00→23:53)
[2020-01-11] MEDS: ACCU-CHEK COMFORT CURVE STRIP VI SCH ×3 (06:00→17:56)
[2020-01-11] MEDS: IPRATROPIUM BROM 0.5 MG/2.5ML INH SOL NEB SCH ×5 (06:25→22:41)
[2020-01-11] MEDS: ALBUTEROL SULF 2.5 MG/0.5ML(0.5%) NEB SOLN NEB SCH ×5 (06:25→22:41)
--- NOTE | 2020-01-11 07:10 | NUR ---
Opening Shift Note Assumed care of patient resting with eyes closed. Respirations even and unlabored. No S/S of distress/SOB or pain. Will continue to monitor for changes Q1hr and PRN. HOB elevated at least 30 degrees, side rails up x 2, call light is within reach and bed locked in lowest position.
--- NOTE | 2020-01-11 08:06 | NUR ---
PATIENT FALL The patient fell onto the ground after trying to give the patient in B bed her apple sauce. Fall witnessed by B bed. She states that she lost her balance while she was turning around to walk back to her pain. The patient fell onto her buttocks. Denies hitting her head or loss of consciousness. Currently complain of moderate left leg pain and left hip pain. Vital signs (Temp 98.4 F, BP 120/78, HR 110, RR 19, SPO 95%). Glucose level is 183. Patient has been helped back into bed. Fall risk band has been placed on the patient's wrist. Bed alarm is on and the patient has been placed in nonslip socks. Patient educated on the need to call for assistance. Hospitalist has been paged. Addendum: 01/11/20 at 2106 by Tee Butler RN *WRONG TIME* @ 2005
[2020-01-11] MEDS: MORPHINE SULF INJ 2 MG/ML SYRINGE 1ML IV PRN ×3 (08:26→20:40)
[2020-01-11 09:00] VITALS: BP 127/78
[2020-01-11] MEDS: HYDROcodone-ACET 5/325MG TAB PO PRN (09:08)
[2020-01-11] MEDS: predniSONE 20 MG TAB PO SCH (09:09)
[2020-01-11] MEDS: CARVEDILOL 3.125 MG TAB PO SCH ×2 (09:11→23:00)
[2020-01-11] MEDS: POTASSIUM CHL 20 Meq TABLET PO SCH (09:12)
[2020-01-11] MEDS: FUROSEMIDE 40 MG TAB PO SCH (09:12)
[2020-01-11] MEDS: PANTOPRAZOLE 40 MG/10 ML VIAL INJ IV SCH (09:14)
[2020-01-11] MEDS: FLUCONAZOLE 200MG/100ML 100 ML IV SCH (09:21)
[2020-01-11] MEDS: levoFLOXacin 500MG 100 ML IV SCH (09:21)
[2020-01-11] MEDS: SACUBITRIL-VALSARTAN 24mg/26mg TAB PO SCH ×2 (09:30→23:10)
--- NOTE | 2020-01-11 12:00 | NUR ---
MD ROUNDS PATIENT WITH DR RODRIGUEZ. NO NEW ORDERS AT THIS TIME. CONTINUE CARE.
[2020-01-11 13:00] VITALS: BP 141/83
[2020-01-11] MEDS: SODIUM CHLOR 0.9% PF (SALINE LOCK) 10ML VIAL/SYR IV SCH ×2 (13:39→23:10)
--- NOTE | 2020-01-11 16:15 | NUR ---
Respiratory note: PATIENT DID NOT TOLERATE SPEAKING VALVE VERY WELL. TRIED MULTIPLE TIMES THROUGH OUT THE DAY. PATIENT THINKS SHE WILL TOLERATE BETTER 30 MINUTES AFTER TAKING XANAX.
[2020-01-11 17:00] VITALS: BP 116/77
[2020-01-11 18:09] LABS: BUN/Creatinine Ratio 21.1; Calcium 9.2 mg/dL (8.5-10.1); Potassium 4.3 mmol/L (3.5-5.1)
--- NOTE | 2020-01-11 19:03 | NUR ---
AT BEDSIDE FOR MED NEB TX. TX GIVEN VIA MOUTHPIECE.
--- NOTE | 2020-01-11 19:13 | NUR ---
CLOSING NOTE ENDORSED CARE TO NOC SHIFT RN
--- NOTE | 2020-01-11 22:00 | NUR ---
HOSPITALIST CALL BACK Notified Dr. Webb about the patient's fall. New order for L Hip x-ray has been received.
--- NOTE | 2020-01-11 22:50 | NUR ---
TRACH CARE: TRACH CARE PROVIDED, WITH OUT INCIDENT. TRACH SITE IS NOTED TO HAVE DRAINING AND SMALL BREAKDOWN UNDERNEATH TRACH FLANGE, PT COMMUNICATES ITS VERY ITCHY. CLEAN DRY DRAIN SPONGES PLACED. PT HAS PRODUCTIVE COUGH OFFERED PT TO SX VIA TRACH PT SHOOK HEAD NO AND COMMUNICATED ITS COMING UP, MEANING SECRETIONS. EXPLAINED BENEFITS OF SX, PT STILL REFUSED. COMMUNICATED TRACHEOSTOMY FINDINGS TO RN CECILY Astorga. WOUND CONSULT WILL BE PLACED PER RN.
[2020-01-11] MEDS: MONTELUKAST SODIUM 10 MG TAB PO SCH (23:10)
[2020-01-11] MEDS: ALPRAZolam 0.5 MG TAB PO PRN (23:19)
[2020-01-12] MEDS: HYDROcodone-ACET 5/325MG TAB PO PRN ×3 (00:43→19:48)
--- NOTE | 2020-01-12 00:45 | NUR ---
FOLLOWED UP WITH RADIOLOGY ABOUT THE PATIENT'S L HIP X-RAY. TECH STATES THAT THE X RAY WILL BE DONE IN THE MORNING.
[2020-01-12 05:00] VITALS: BP 133/60
[2020-01-12] MEDS: InsuLIN REG 1unit/0.01ml Soln (100units/ml) SC SCH ×4 (05:36→23:30)
[2020-01-12] MEDS: MORPHINE SULF INJ 2 MG/ML SYRINGE 1ML IV PRN ×2 (05:49→09:57)
[2020-01-12] MEDS: ACCU-CHEK COMFORT CURVE STRIP VI SCH ×5 (06:00→23:30)
[2020-01-12 06:23] LABS: Basophils # (auto) 0 10 ^3/uL (0-0.2); Basophils % (auto) 0.1 % (0.0-2.0); Eosinophils # (auto) 0.1 10 ^3/uL (0-0.8); Eosinophils % (auto) 0.7 % (0.0-7.0); Hematocrit 37.2 % (36.0-46.0); Hemoglobin 12.9 g/dL (12.2-16.2); Lymphocytes # (auto) 3.4 10 ^3/uL (0.4-5.4); Lymphocytes % (auto) 23.4 % (10.0-50.0); Mean Corpuscular Hemoglobin 33.9 pg (28.0-32.0); Mean Corpuscular Hgb Conc. 34.7 g/dL (32.0-36.0); Mean Corpuscular Volume 97.5 fL (80.0-100.0); Monocytes # (auto) 1.3 10 ^3/uL (0-1.3); Monocytes % (auto) 9.1 % (0.0-12.0); Neutrophils # (auto) 9.6 10 ^3/uL (1.6-8.6); Neutrophils % (auto) 66.7 % (37.0-80.0); Platelet Count (auto) 185 10^3/uL (140-450); Red Blood Cells 3.82 10^6/uL (4.0-5.20); Red Cell Distribution Width 13.6 % (11.8-14.3); White Blood Cell 14.4 10^3/uL (4.4-10.8)
[2020-01-12 06:45] LABS: BUN/Creatinine Ratio 19.7; Calcium 8.8 mg/dL (8.5-10.1); Potassium 3.1 mmol/L (3.5-5.1)
[2020-01-12] MEDS: IPRATROPIUM BROM 0.5 MG/2.5ML INH SOL NEB SCH ×5 (06:55→22:53)
[2020-01-12] MEDS: ALBUTEROL SULF 2.5 MG/0.5ML(0.5%) NEB SOLN NEB SCH ×5 (06:55→22:53)
[2020-01-12 08:00] VITALS: BP 107/66
[2020-01-12] MEDS: FLUCONAZOLE 200MG/100ML 100 ML IV SCH (09:53)
[2020-01-12] MEDS: levoFLOXacin 500MG 100 ML IV SCH (09:53)
[2020-01-12] MEDS: FUROSEMIDE 40 MG TAB PO SCH (09:54)
[2020-01-12] MEDS: SACUBITRIL-VALSARTAN 24mg/26mg TAB PO SCH ×2 (09:54→21:37)
[2020-01-12] MEDS: POTASSIUM CHL 20 Meq TABLET PO SCH (09:54)
[2020-01-12] MEDS: predniSONE 20 MG TAB PO SCH (09:55)
[2020-01-12] MEDS: SODIUM CHLOR 0.9% PF (SALINE LOCK) 10ML VIAL/SYR IV SCH ×2 (10:03→21:36)
[2020-01-12] MEDS: CARVEDILOL 3.125 MG TAB PO SCH ×2 (10:03→21:36)
[2020-01-12] MEDS: PANTOPRAZOLE 40 MG/10 ML VIAL INJ IV SCH (10:03)
[2020-01-12 12:00] VITALS: BP 116/76
--- NOTE | 2020-01-12 12:09 | NUR ---
Nutrition Followup Notes Wt: 76.1 kg Pt was sleeping with no family at bedside at time of rounds. Pt diet advanced to mech soft with CCHO 60g and 2g Na with a good appetite aeb pt with 79% po intake x 2 days per RN note. Est energy needs 6526-3632 kcal (20-25 kcal/kg BW 72.2kg) Est protein needs 58-72g (0.8-1g/kg BW 72.2kg) Will reassess prn. Labs: Na 135L, GLUC 164H, Alb 2.3L BM: Pt had 2 BMs on 01/10 per RN doc Skin: BS 18 mod risk, full details in laboratory animal care veterinarian note PES: Resolved: Inadequate oral intake aeb pt with NPO diet order r/t current medical condition Comments Will continue to monitor NPO status, skin status, pertinent labs and weight trends. Will f/u in 3-5 days. Rec: 1) Continue to monitor po intake, labs, skin 2) Refer pt to [facility]PD on Dc 3) Continue current plan of care.
--- NOTE | 2020-01-12 12:30 | NUR ---
Dr. Hernandez at bed side discussing POC with patient. Patient verbalizes understanding.
[2020-01-12] MEDS ORDERED: POTASSIUM CHL 20 Meq TABLET PO ONE (13:00)
--- NOTE | 2020-01-12 13:25 | NUR ---
Respiratory note: PLACED PT ON SPEAKING VALVE AND COACHED HER ON TECHNIQUE. PT DESATURATED TO 88% SPO2. PT BECAME ANXIOUS AND ASKED THAT THE SPEAKING VALVE BE REMOVED. AFTER MORE COACHING THE PT AGREED TO TRY THE SPEAKING VALVE AGAIN. PT SPO2 WAS 94%. PT AGAIN BECAME ANXIOUS AND ASKED THAT THE SPEAKING VALVE BE REMOVED. THERAPIST INFORMED PT THAT WE WILL TRY AGAIN LATER.
[2020-01-12] MEDS: ALPRAZolam 0.5 MG TAB PO PRN (14:14)
--- NOTE | 2020-01-12 14:45 | NUR ---
WOUND CARE NOTE: WOUND CARE IN TO SEE PATIENT PER NEW WOUND CARE REQUEST. BEDSIDE NURSE NOTED NEW SKIN INTEGRITY ISSUE TO PATIENT'S NECK FROM TRACH COLLAR. UNABLE TO OBTAIN PHOTOGRAPH AT THIS TIME. CMALL SQUARE OF OPTIFOAM APPLIED BETWEEN COLLAR AND PATIENT'S NECK TO EASE PRESSURE. RECOMMEND: PRN APPLICATION OF OPTIFOAM SQUARE TO PRESSURE AREA AT BOTTOM OF TRACH COLLAR. CONTINUED MONITORING BY WOUND CARE TEAM.
--- NOTE | 2020-01-12 16:00 | NUR ---
Patient states she is missing money (two $100 bills) and is requesting to speak to precipitator supervisor. Hard chart belong list reviewed and two $100 bills not listed. Myranda washing machine repairer made aware of patient complaint. Per Myranda contact Display Card Writer Leidy so she can double check safe.
--- NOTE | 2020-01-12 16:22 | NUR ---
re:missing belongings Per Flash Welder Leidy she personally returned safe belongings to patient when out of ICU, which did not include $200. RN instructed to f/u with Jacinta Nobles [phone] on 01/12
[2020-01-12 16:52] VITALS: BP 131/76
--- NOTE | 2020-01-12 19:40 | NUR ---
Opening Shift Note Assumed care of patient, awake and alert.Respiratory therapy at bedside. No S/S of distress/SOB. pain 6/10 generalized aching pain, will medicate for pain.Patient has tracheostomy in place dressing in place to tracheostomy. oxygen saturation is 94% on room air. Patient ambulated from bed to chair without walker gait is steady. encouraged to use walker to prevent falls and to call for assistance. Patient communicated with whiteboard. Instructed on POC and to call for assist PRN, will continue to monitor for changes Q1hr and PRN.
--- NOTE | 2020-01-12 19:48 | NUR ---
PAIN PAIN 6/10 GENERALIZED PATIENT MEDICATED FOR PAIN.
--- NOTE | 2020-01-12 20:48 | NUR ---
pain pain 0/10 tolerable level
[2020-01-12] MEDS: MONTELUKAST SODIUM 10 MG TAB PO SCH (21:37)
--- NOTE | 2020-01-12 21:47 | NUR ---
patient diet patient is alert and orientated times 4 and educated on her diet per mD order. patient verbalized understanding and informed me through whiteboard/mouthing that she will have her bf bring her food. informed patient she is to only have mechanical soft foods informed patient of benefits and risks patient verbalized understanding through whiteboard and mouthing. Patient insists that her bf will be bringing her food, stated she will have her bf bring her food and that the doctor said it was okay. Patient again educated.
[2020-01-12 22:07] VITALS: BP 128/77
--- NOTE | 2020-01-13 00:31 | NUR ---
patient off tele patient is off tele. patient removed telebox educated patient on maintaining telebox on. per patient she will reapply telebox once she is done giving herself a bed bath. informed patient i would provided assistance patient refused. informed patient to call when she is done to reapply telebox reeducated patient on benefits and risks of telebox.
--- NOTE | 2020-01-13 00:57 | NUR ---
telemonitor reapplied
[2020-01-13] MEDS: MORPHINE SULF INJ 2 MG/ML SYRINGE 1ML IV PRN (01:26)
--- NOTE | 2020-01-13 01:26 | NUR ---
pain pain 10/10 aching generalized patient medicated for pain
--- NOTE | 2020-01-13 02:10 | NUR ---
pain pain reassessment 0/10 pain
[2020-01-13 05:00] VITALS: BP 121/83
[2020-01-13] MEDS: ALPRAZolam 0.5 MG TAB PO PRN ×3 (05:11→22:33)
[2020-01-13] MEDS: InsuLIN REG 1unit/0.01ml Soln (100units/ml) SC SCH ×3 (05:30→18:14)
[2020-01-13] MEDS: HYDROcodone-ACET 5/325MG TAB PO PRN (05:30)
[2020-01-13] MEDS: ACCU-CHEK COMFORT CURVE STRIP VI SCH ×3 (05:30→18:00)
--- NOTE | 2020-01-13 05:32 | NUR ---
pain 09/23 pain to abd aching pain patient medicated for pain. Addendum: 01/13/20 at 0532 by MANJEET DEUTSCH RN RN correct time 05
[2020-01-13] MEDS: ALBUTEROL SULF 2.5 MG/0.5ML(0.5%) NEB SOLN NEB SCH ×5 (06:17→22:34)
[2020-01-13] MEDS: IPRATROPIUM BROM 0.5 MG/2.5ML INH SOL NEB SCH ×5 (06:17→22:34)
--- NOTE | 2020-01-13 06:59 | NUR ---
report given to dayshift rn. patient denies sob distress or pain
[2020-01-13] MEDS: FLUCONAZOLE 200MG/100ML 100 ML IV SCH (08:52)
[2020-01-13] MEDS: levoFLOXacin 500MG 100 ML IV SCH (08:52)
[2020-01-13] MEDS: PANTOPRAZOLE 40 MG/10 ML VIAL INJ IV SCH (08:53)
[2020-01-13] MEDS: predniSONE 20 MG TAB PO SCH (08:53)
[2020-01-13] MEDS: SODIUM CHLOR 0.9% PF (SALINE LOCK) 10ML VIAL/SYR IV SCH ×2 (08:53→22:33)
[2020-01-13] MEDS: POTASSIUM CHL 20 Meq TABLET PO SCH (08:54)
[2020-01-13] MEDS: SACUBITRIL-VALSARTAN 24mg/26mg TAB PO SCH ×2 (08:54→22:10)
[2020-01-13] MEDS: CARVEDILOL 3.125 MG TAB PO SCH ×2 (08:54→22:11)
[2020-01-13] MEDS: FUROSEMIDE 40 MG TAB PO SCH (08:54)
[2020-01-13 09:00] VITALS: BP 127/69
--- NOTE | 2020-01-13 09:00 | NUR ---
D/C Planning Per SS consult for SNF placement. Per provided patient is not medical stable. Will follow-up and provide intervention as appropriate.
--- NOTE | 2020-01-13 10:09 | NUR ---
re-assessment Per consult patient requesting to speak to SW in regards to important personal matter. Patient informed me through bedside nurse that she is scared to be discharged with trach. Patient does not want to go with sig other XL who lives with his family. Patient is requesting to go to SNF until she is back to her baseline. Patient has no preference on what SNF she will go to. I informed her [facility] will satisfy SNF order once it come in. Patient understands and agrees to discharge plan to SNF. Addendum: 01/13/20 at 1012 by Mattie Barnes Amended: Links added.
--- NOTE | 2020-01-13 10:38 | NUR ---
re:missing valuables Spoke to Jacinta Nobles at ext [phone] in regards of patient complaint of missing belongings. Per Jacinta she will be looking into the matter and will be in contact with RN by end of day. Will update pt on matter status.
--- NOTE | 2020-01-13 11:50 | NUR ---
ASSUMED CARE OF PATIENT FROM [facility]EN[facility]
--- NOTE | 2020-01-13 12:30 | NUR ---
MD ROUNDS DR. RO AT BEDSIDE. NO NEW ORDERS AT THIS TIME. CONTINUE CARE.
[2020-01-13 13:00] VITALS: BP 117/69
[2020-01-13 13:19] VITALS: BP 127/69
--- NOTE | 2020-01-13 15:06 | NUR ---
Respiratory note: ATTEMPTED TO PLACE PT ON SPEAKING VALVE. PT SPO2 95%. HEART RATE 115. RESPIRATORY RATE 16. PT COMPLAINS OF MODERATE AMOUNT OF SPUTUM IN AIRWAY. PT IS AGITATED BUT TOLERATING WELL. SPEAKING VALVE TO BE LEFT IN PT ROOM. RN ADVISED TO KEEP TRACK OF SPEAKING VALVE TO AVOID LOSS. PT ADVISED ON SPEAKING VALVE TECHNIQUE.
--- NOTE | 2020-01-13 15:24 | NUR ---
Called/paged Dr. RO called regarding anxiety medication dosage. Waiting for call back. Continue care.
--- NOTE | 2020-01-13 15:30 | NUR ---
Respiratory note: KENDELL TORRES INFORMED ME DR RO WANTS SPEAKING VALVE KEPT AT BEDSIDE. KENDELL TORRES AWARE SPEAKING VALVE IS IN ROOM ON PATIENT AT THIS TIME. RN TO PAGE RT IF SPEAKING VALVE NEEDS TO BE TAKEN OFF OF PATIENT.
--- NOTE | 2020-01-13 15:33 | NUR ---
returned call Dr. Hernandez returned call, updated on patient status and reason for call, orders received for 1mg Xanax BID prn. Continue care.
[2020-01-13 16:54] VITALS: BP 124/78
--- NOTE | 2020-01-13 18:16 | NUR ---
Called/paged Dr. Ames paged regarding patient's hesitancy to consent to procedure. Waiting for call back. Continue care.
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
--- NOTE | 2020-01-13 18:46 | NUR ---
paged Dr. Ames paged regarding patient's request to have Dr. Wyatt consult her. Waiting for call back. Continue care.
--- NOTE | 2020-01-13 18:49 | NUR ---
returned call Dr. Ames returned call, updated on patient status and reason for call. Dr. Ames verbalized that it was ok for Dr. Wyatt to consult this patient. Continue care.
--- NOTE | 2020-01-13 19:20 | NUR ---
AT BEDSIDE FOR MED NEB AND TRACH CARE. PT WAS ATTEMPTING TO SPEAK ON HER CELL PHONE AND WAS OBSERVED DOING A VERY FORCED COUGH. PT WAS SUCTIONED FOR SMALL GREEN BLOODY SECRETIONS. TRACH CARE PERFORMED. AIRWAY SECURE. PT PLACED ON 28% COOL AEROSOL TO HELP WITH PERSISTENT DRY COUGH. SPARE TRACH AT BEDSIDE.
--- NOTE | 2020-01-13 19:27 | NUR ---
ENDORSED CARE TO NOC SHIFT RN
--- NOTE | 2020-01-13 20:00 | NUR ---
Opening Shift Note Assumed care of patient, awake and alert. No S/S of distress/SOB or pain. Instructed on POC and to call for assist PRN, will continue to monitor for changes Q1hr and PRN. Patient has speaking valve at bedside per patient " DR fraga said i can have it here in my room" patient educated on maintaining npo status at midnight and procedure scheduled tomorrow. Patient became agitated stating " I will not have anything done. i have not been seen by any other doctor. I want to be seen first by COPD DR. I will not sign anything" Informed patient Pulmonary consult is in place. per patient " i will not have the procedure tomorrow." Informed patient awaiting pulmonary consult per dayshift rn andrey glover is aware of patient refusal.
--- NOTE | 2020-01-13 20:48 | NUR ---
Call from ER that patient significant other XL requesting belongings/card from patient. Patient Natasha requested to give to patient. Belongings/card given to XL patient significant other. Natasha was on the phone with Xl during the time items were given.
--- NOTE | 2020-01-13 21:00 | NUR ---
patient rounds patient is seen upset yelling on the phone. patient is walking around with steady gait. no weakness noted. Educated patient to relax and if she would like to lay down in bed as heart rate is in the 100's. Patient heart rate is high with activity.Informed patient lights would be turned off if she requested to help her relax. patient refused. Patient continued to talk on the phone.
[2020-01-13 22:00] VITALS: BP 112/74
[2020-01-13] MEDS: MONTELUKAST SODIUM 10 MG TAB PO SCH (22:10)
--- NOTE | 2020-01-13 22:50 | NUR ---
Patient informed me she was not seen by a pulmonary doctor. Patient stated " i will not go to the procedure or sign anything because i was not made aware of the different options i have." Patient was informed and educated on preop preparation and to remain npo to prepare for procedure incase she changes her mine while awaiting for doctor to come in and explain procedure. Patient verbalized refusal. supercharger repair supervisor made aware.
--- NOTE | 2020-01-13 23:25 | NUR ---
patient rounds patient is seen upset yelling on the phone. patient is walking around with steady gait. no weakness noted. Educated patient to relax and if she would like to lay down in bed as heart rate is in the 100's. Patient heart rate is high with activity.Informed patient lights would be turned off if she requested to help her relax. Patient continued to talk on the phone.Patient refused.
--- NOTE | 2020-01-13 23:40 | NUR ---
PERRY MCDERMOTT states they want to leave the floor Against Medical Advice (AMA) to go outside/smoke. Patient encouraged to stay on floor.Patient advised of the risks and benefits of leaving AMA. Patient verbalized understanding and signed required AMA form.
--- NOTE | 2020-01-13 23:50 | NUR ---
patient back on unit denies sob distress or pain RT at bedside
--- NOTE | 2020-01-13 23:50 | NUR ---
patient has food at bedside. patient educated on diet ordered by md .Patient educated on benefits and risks patient verbalized understanding and refused.
[2020-01-14] MEDS: InsuLIN REG 1unit/0.01ml Soln (100units/ml) SC SCH ×4 (00:03→21:29)
[2020-01-14] MEDS: ACCU-CHEK COMFORT CURVE STRIP VI SCH ×4 (00:03→18:00)
[2020-01-14] MEDS: MORPHINE SULF INJ 2 MG/ML SYRINGE 1ML IV PRN ×2 (00:45→08:58)
--- NOTE | 2020-01-14 00:46 | NUR ---
PAIN 10/10 ABD. PATIENT MEDICATED FOR PAIN. PATIENT INSTRUCTED AND EDUCATED OF FALL RISK. AND TO CALL FOR ASSISTANCE WHEN USING THE RESTROOM / WALKING TO PREVENT FALL PATIENT REFUSED TO HAVE BED ALARM ON. PATIENT STATED SHE WOULD CALL.
--- NOTE | 2020-01-14 02:05 | NUR ---
RT/trach care paged RT and received call back from brayan. informed brayan patient requesting trach care per brayan patient primary RT is in a code. Per brayan patient has received trach care and Primary Rt will come in when available. patient notified
--- NOTE | 2020-01-14 02:28 | NUR ---
patient rounds patient denies sob distress or pain. patient walking around room with steady gait.
[2020-01-14 05:00] VITALS: BP 94/51
--- NOTE | 2020-01-14 05:31 | NUR ---
patient awake and alert.slab worker at bedside.patient refusing blood sugar,lab to be drawn, and ekg. patient educated on benefits and risks. patient verbalized refusal. per slab worker she will be back to try again later.
--- NOTE | 2020-01-14 05:42 | NUR ---
low b/p patient continues to be noncompliant. patient is awake and alert. asymptomatic.patient blood pressure reading low this am. attempted to recheck b/p. patient educated on benefits and risks . patient stated refusal and informed me to let her sleep.
--- NOTE | 2020-01-14 06:30 | NUR ---
patient rounds patient is in bed laying down denies sob distress or pain. Trach is in place and patent. speech valve is at bedside. patient piccline is intact and patent. call light within reach and bed in low position.
--- NOTE | 2020-01-14 06:39 | NUR ---
patient heart rate elevated patient is walking to bedside commode. denies sob distress or pain
--- NOTE | 2020-01-14 07:00 | NUR ---
patient said she misplaced speech valve. RT at bedside and assisted in looking for speech valve. speech valve is not found in room per rt they will order a new speech valve.
--- NOTE | 2020-01-14 07:03 | NUR ---
ARRIVED AT BEDSIDE FOR MEDNEB TX, FOUND PT WALKING AROUND ROOM FRANTICALLY SEARCHING FOR SPEAKING VALVE. RN IN ROOM ALSO SEARCHING. SPOKE WITH PATIENT, SAYS IT MIGHT HAVE FALLEN OFF IN THE BED WHILE SHE WAS SLEEPING. ASSESSED TRACHEOSTOMY, PT WITH 8.0 SHILEY, SUTURES IN PLACE, STOMA IS DRAINING, CUFF DEFLATED. PT ON ROOM AIR, BREATH SOUNDS CLEAR/DIM. PT REFUSING BREATHING TX AT THIS TIME. RN AND PT STATED THAT THEY HAVE SEARCHED EVERYWHERE IN THE BED/ROOM FOR VALVE AND UNABLE TO LOCATE IT. NOTIFIED LEAD RT, AWAITING REPLACEMENT SPEAKING VALVE. PROVIDED EDUCATION TO PATIENT. NO S/S OF RESPIRATORY DISTRESS AT THIS TIME. RT NAME AND PAGER NUMBER ON BOARD, PT AWARE TO CALL FOR RT IF NEEDED.
--- NOTE | 2020-01-14 07:10 | NUR ---
Opening Shift Note Assumed care of patient, awake and alert. No S/S of distress/SOB or pain. Instructed on POC and to call for assist PRN, will continue to monitor for changes Q1hr and PRN.
[2020-01-14] MEDS: IPRATROPIUM BROM 0.5 MG/2.5ML INH SOL NEB SCH ×5 (07:15→22:05)
[2020-01-14] MEDS: ALBUTEROL SULF 2.5 MG/0.5ML(0.5%) NEB SOLN NEB SCH ×5 (07:15→22:05)
--- NOTE | 2020-01-14 07:16 | NUR ---
REPORT GIVEN TO DAYSHIFT RN. PATIENT DENIES SOB DISTRESS OR PAIN. INFORMED RN RT WAS AT BEDSIDE AND AWARE OF PATIENT MISPLACING SPEECH VALVE. PER RT THEY WILL ORDER NEW ONE. INFORMED RN PATIENT DID NOT REMAIN NPO PATIENT REFUSED AND WAS TAKEN DOWN TO OBTAIN FOOD LAST NIGHT BY RT. INFORMED RN PATIENT REFUSED BP RECHECK ,BS CHECK, AND REFUSED MORNING LABS.
--- NOTE | 2020-01-14 07:44 | NUR ---
pt digging in the trash found speaking valve, rt bedside informed rt, per pt "i found it in the trash, someone through it there on purpose!" rt explained that it wasnt thrown on purpose, rt explained trach desizing procedure to pt, pt easily distracted started speaking about pain medications and something for anxiety, rt reorientated pt back to procedure to be done, pt stated "no one has talked to me about that" rt explained i just told you about it, pt went off topic again speaking about her found speaking valve, rt informed this nurse
--- NOTE | 2020-01-14 07:55 | NUR ---
B bed in room came to station inquiring why her roomate this pt has not recieved her breakfast tray, went in room explained to pt that she has procedure today, per pt "i dont have aprocedure no one explained anything to me" reorientated pt that MD, NURSE, RT, have all explained procedure to pt.
--- NOTE | 2020-01-14 08:13 | NUR ---
radiology bedside for pre op x ray, pt stated "no one has explained anything to me" radiology inquired with this nurse what she will be having explained to radiology, pt wants to know what time this will be happening, called pre op, per pre op, pt will have procedure "today in a couple of hours"
[2020-01-14] MEDS: levoFLOXacin 500MG 100 ML IV SCH (08:56)
[2020-01-14] MEDS: PANTOPRAZOLE 40 MG/10 ML VIAL INJ IV SCH (08:56)
[2020-01-14] MEDS: SODIUM CHLOR 0.9% PF (SALINE LOCK) 10ML VIAL/SYR IV SCH ×2 (08:56→22:00)
[2020-01-14] MEDS: predniSONE 20 MG TAB PO SCH (08:57)
[2020-01-14] MEDS: SACUBITRIL-VALSARTAN 24mg/26mg TAB PO SCH ×2 (08:57→21:42)
[2020-01-14] MEDS: CARVEDILOL 3.125 MG TAB PO SCH ×2 (08:57→21:42)
[2020-01-14] MEDS: FUROSEMIDE 40 MG TAB PO SCH (08:58)
[2020-01-14] MEDS: POTASSIUM CHL 20 Meq TABLET PO SCH (08:58)
[2020-01-14] MEDS: ALPRAZolam 0.5 MG TAB PO PRN (08:59)
[2020-01-14 09:13] VITALS: BP 125/50
--- NOTE | 2020-01-14 09:15 | NUR ---
pre op called explained situation with pt not wanting procedure because no one explained it to her, expalined issue with pt having food bedside not knowing if pt ate, per pre op she will notify team and call me back
[2020-01-14 09:19] LABS: INR 0.97 (0.9-1.15); Partial Thromboplastin Time 27.7 sec (23.0-31.2)
[2020-01-14 09:22] LABS: BUN/Creatinine Ratio 15.1; Calcium 9.1 mg/dL (8.5-10.1); Potassium 3.6 mmol/L (3.5-5.1)
[2020-01-14] MEDS: FLUCONAZOLE 200MG/100ML 100 ML IV SCH (10:00)
--- NOTE | 2020-01-14 10:15 | NUR ---
charge nurse made aware that pt is violently upset with someone she is on facetime with, charge made aware went in room to calm patient down
--- NOTE | 2020-01-14 10:32 | NUR ---
CALLED PRE OP PER PRE OP SHE WILL BE GOING DOWNSTAIRS WITHIN THE HOUR FOR THE PROCEDURE
--- NOTE | 2020-01-14 11:00 | NUR ---
PT OFF UNIT. SPEAKING VALVE PLACED IN PT-LABELED BAG AND STORED SECURELY IN RESPIRATORY DEPARTMENT.
--- NOTE | 2020-01-14 11:10 | NUR ---
[facility] time pre op called right after i told them we were bringing her back, pre op stated they will call me immediately back
--- NOTE | 2020-01-14 11:24 | NUR ---
called pre op to check status per RN covering Izabel she stated Izabel went on lunch, informed her of the urgency of the matter pt is to go down not even 10 minutes ago, per rn covering izabel she doesnt know
--- NOTE | 2020-01-14 11:51 | NUR ---
charge nurse called banquet houseperson called regarding not being able to communicate with pre op per miesha segovia ramin will explain procedure bedside asked why pt cant be explained down in pre op, pt currently on floor in front of nursing station in emotional distress, pre op called stated ramin is now canceling the procedure, informed electrical discharge machine operator to escalate the situation
--- NOTE | 2020-01-14 11:54 | NUR ---
charge master specialist speaking to patient sitting at the station that procedure has been canceled
--- NOTE | 2020-01-14 11:58 | NUR ---
paged rt to bring speaking valve to pt per pt request awaiting call back
--- NOTE | 2020-01-14 12:05 | NUR ---
PT BACK FROM O.R., REQUESTING SPEAKING VALVE. BROUGHT TO BEDSIDE, PLACED ON PT'S TRACHEOSTOMY WITH CUFF DEFLATED. PT TOLERATING WELL, TALKING WITH HER NEIGHBOR, NO S/S OF RESPIRATORY DISTRESS. Addendum: 01/14/20 at 1223 by LENORE RIVERA, RT RT 1215 - DISREGARD. PT HASN'T HAD PROCEDURE DONE YET. RN PREPARING PT FOR TRANSPORT TO PRE-OP AT THIS TIME. SPEAKING VALVE SECURED IN PT-LABELED BAG AND STORED IN RESPIRATORY DEPARTMENT.
--- NOTE | 2020-01-14 12:36 | NUR ---
pt taken to pre op
[2020-01-14] MEDS ORDERED: MIDAZOLAM HCL 1MG/1ML-2 ML VIAL ONE (13:19)
[2020-01-14] MEDS ORDERED: ONDANSETRON HCL 4 MG/2 ML VIAL ONE (13:19)
[2020-01-14] MEDS ORDERED: GLYCOPYRROLATE 0.2 MG/ML 1ML VIAL ONE (13:19)
[2020-01-14] MEDS ORDERED: ROCURONIUM 10MG/ML 10ML VIAL IV ONE (13:19)
[2020-01-14] MEDS ORDERED: PROPOFOL 10 MG/ML 20 ML IV ONE (13:19)
[2020-01-14] MEDS ORDERED: fentaNYL CITRATE 100 MCG/2 ML VL ONE (13:19)
--- NOTE | 2020-01-14 14:09 | NUR ---
Respiratory note: Unable to admin scheduled 1400 medneb tx, pt still at OR for procedure.
[2020-01-14 14:33] VITALS: BP 126/85
--- NOTE | 2020-01-14 14:33 | NUR ---
POST-OP, PT ON VENTILATOR. PT. RECEIVED FROM S/P TRACH DOWN SIZE. PT. PLACED ON ADRIANA VENT #[id number] WITH ABOVE VERBAL ORDERS FROM DR. GUTIERRES. PT. IS TRACHED WITH A SHILEY 6.0, SECURED WITH TRACH TIES AND SUTURES. BREATH SOUNDS ARE COARSE T/O. ETS FOR SMALL, THICK, BLOODY SECRETIONS. STRONG GAG/COUGH NOTED. SPUTUM SAMPLE OBTAINED. SKIN IS WARM/DRY TO TOUCH. VENT IS PLUGGED INTO RED OUTLET, ALARMS ARE ON AND AUDIBLE, BVM AT BEDSIDE WITH O2 SOURCE.
[2020-01-14] MEDS ORDERED: ACCU-CHEK COMFORT CURVE STRIP VI ONE (14:45)
[2020-01-14] MEDS ORDERED: ONDANSETRON HCL 4 MG/2 ML VIAL IV PRN (14:45)
[2020-01-14] MEDS ORDERED: HYDROmorphone HCL 2 MG/ML VL IV PRN (14:45)
[2020-01-14] MEDS ORDERED: PROPOFOL 100 ML IV ONE (14:46)
[2020-01-14] MEDS ORDERED: FUROSEMIDE 20 MG/2 ML VIAL ONE (15:15)
[2020-01-14] MEDS ORDERED: FUROSEMIDE 20 MG/2 ML VIAL IV ONE (15:15)
--- NOTE | 2020-01-14 15:45 | NUR ---
CPAP TRIAL PT AWAKE AND ALERT, FOLLOWING COMMANDS AND ATTEMPTING TO GET UP IN BED. INITIATED CPAP TRIAL, PT TOLERATING WELL, NO S/S OF DISTRESS. RN SREE AT BEDSIDE AND AWARE OF CHANGES. WEANING PARAMETERS: NIF -60, VC 1.6L, RSBI 26, LEAK >200ML. ABG TO FOLLOW. WILL CONT TO MONITOR.
--- NOTE | 2020-01-14 16:24 | NUR ---
CALLED DR. ALBERTS TO UPDATE MD ON PT STATUS AND CPAP TRIAL RESULTS. ORDERS RECEIVED TO PLACE PT ON TRACH COLLAR TO MAINTAIN SPO2 GREATER THAN 92%. ORDERS READ BACK AND VERIFIED. WILL CARRY OUT.
--- NOTE | 2020-01-14 16:36 | NUR ---
TRACH COLLAR TOOK PT OFF VENT AND PLACED ON TRACH COLLAR 30%. PT TOLERATING WELL, DENIES SOB. HR 103, RR 16, SPO2 96%. PT AWAKE AND ALERT, NO S/S OF DISTRESS. RN AT BEDSIDE AND AWARE.
--- NOTE | 2020-01-14 17:19 | NUR ---
pacu called stated to bring pt belongings down to recovery because pt will be going to icu
--- NOTE | 2020-01-14 17:19 | NUR ---
Received report from OR nurse. Patient is desiring to eat and very agitated at this time She is on ventilator at saturation and RR is WNL. RN paged Dr. Melara to clarify patients ability to eat.
--- NOTE | 2020-01-14 17:43 | NUR ---
Patient arrived from OR. OR nurse stated patient was highly agitated and demanding to eat. On arrival to room RN discussed physicians orders for not eating for two days, but that RN had a phone call into the surgeon requesting clarification. Patient response was to start cussing at RN mouthing and hitting the bed that "fuck no" she was not going to put up with this, that she wanted a cigarette and refused to get into the bed once she had slid over. OR nurses bedside to assist with patient, as patient refused to get in the bed, so RN called security as she was hitting the bed and cussing. Patient then vocalized she did not want RN as her nurse and OR nurses intervened. RN from unit assist with talking with patient and trying to calm her down. Kacy HR 112 SPO2 97% , RR 29. Security is bedside trying to assist with patients demands, she is banging on the side rails and asking for her writing boards.
--- NOTE | 2020-01-14 17:53 | NUR ---
RN asked patient if she was feeling any pain and she turned her head refusing to answer.
--- NOTE | 2020-01-14 17:58 | NUR ---
RN spoke with herb grower and patients response to not eating and will continue care until next shift. Security is bedside to assist with questions for cooperation.
[2020-01-14 18:00] VITALS: BP 116/70
--- NOTE | 2020-01-14 18:08 | NUR ---
Patient is refusing all care or BP cuff. RN asked to another nurse to put on BP cuff so that we could get a reading.
--- NOTE | 2020-01-14 18:55 | NUR ---
RN spoke with Main Entree Cook And Cashier regarding patient agressive behavior and the fact that she is videotaping on her phone. Per Main Entree Cook And Cashier security is to be called and she is to be instructed that she is to put her phone away and she is to remain calm and not be aggressive or the talent acquisition coordinator will be called. Additionally she has the option to comply with the care prescribed without violence or aggressive behavior. Security is bedside at this time.
--- NOTE | 2020-01-14 19:08 | NUR ---
Security is bedside talking with patient, she is hitting the bed, she is pointing fingers and she is turning her head and calling me a bitch as I am sitting outside of the room and not near the patient as she requested.
--- NOTE | 2020-01-14 19:12 | NUR ---
Patient refused MRSA swab.
--- NOTE | 2020-01-14 19:22 | NUR ---
No return call from Dr. Melara before end of shift. Will endorse to p.m. nurse at turnover. Paged to discuss diet orders as patient is angry and demanding to eat.
[2020-01-14 20:00] VITALS: BP 132/84
[2020-01-14] MEDS: MONTELUKAST SODIUM 10 MG TAB PO SCH (21:42)
[2020-01-14 22:00] VITALS: BP 118/82
--- NOTE | 2020-01-14 22:00 | NUR ---
Received patient resting in bed, anxious, not wearing the Oxygen,checked the bg =192, covered by sliding scale with 3 units reg. Insulin sq. helped pt to sit up in the recliner and reassured. when RT came for the tx pt invitd to return to bed ,and afterwards she fell asleep on trach collar 35% FIO2.
[2020-01-15] VITALS (9 sets, daily range): BP systolic 101–140; BP diastolic 50–82
[2020-01-15 03:45] LABS: Basophils # (auto) 0 10 ^3/uL (0-0.2); Basophils % (auto) 0.1 % (0.0-2.0); Eosinophils # (auto) 0 10 ^3/uL (0-0.8); Hematocrit 37.5 % (36.0-46.0); Hemoglobin 12.8 g/dL (12.2-16.2); Lymphocytes # (auto) 1.1 10 ^3/uL (0.4-5.4); Lymphocytes % (auto) 7.5 % (10.0-50.0); Mean Corpuscular Hemoglobin 33.8 pg (28.0-32.0); Mean Corpuscular Hgb Conc. 34.2 g/dL (32.0-36.0); Monocytes # (auto) 0.7 10 ^3/uL (0-1.3); Monocytes % (auto) 5.1 % (0.0-12.0); Neutrophils # (auto) 12.3 10 ^3/uL (1.6-8.6); Neutrophils % (auto) 87.3 % (37.0-80.0); Platelet Count (auto) 207 10^3/uL (140-450); Red Blood Cells 3.79 10^6/uL (4.0-5.20); Red Cell Distribution Width 14.1 % (11.8-14.3); White Blood Cell 14.1 10^3/uL (4.4-10.8)
[2020-01-15 04:07] LABS: BUN/Creatinine Ratio 15.9; Potassium 3.9 mmol/L (3.5-5.1)
[2020-01-15] MEDS: PROPOFOL 100 ML IV SCH ×2 (05:05→11:13)
[2020-01-15] MEDS: InsuLIN REG 1unit/0.01ml Soln (100units/ml) SC SCH ×4 (05:33→18:02)
[2020-01-15] MEDS: ACCU-CHEK COMFORT CURVE STRIP VI SCH ×4 (05:35→18:00)
[2020-01-15] MEDS: IPRATROPIUM BROM 0.5 MG/2.5ML INH SOL NEB SCH ×6 (05:38→22:20)
[2020-01-15] MEDS: MORPHINE SULF INJ 2 MG/ML SYRINGE 1ML IV PRN ×4 (05:41→23:19)
--- NOTE | 2020-01-15 05:46 | NUR ---
Uneventful night, pt. rested most of the time, remains appropriat and cooperative, vs stable, god o2 sats, minimal secretions from the tracheostomy, mostly dry cough.Trach care this am, no bleeding noted at the site.
[2020-01-15] MEDS: ALBUTEROL SULF 2.5 MG/0.5ML(0.5%) NEB SOLN NEB SCH ×5 (06:20→22:20)
--- NOTE | 2020-01-15 06:20 | NUR ---
Respiratory note: PT IS RESTING COMFORTABLY. SPO2 98% ON 30% COOL AEROSOL VIA TRACH COLLAR, HR 101, RR 20, BS CLEAR BILATERALLY. MEDNEB TX GIVEN WITH NO ADVERSE EFFECTS NOTED. PT TRACHED WITH 6.0 SHILEY SECURED WITH BRE. SUTURES IN PLACE. CUFF PRESSURE [id number]. SOME BLOODY DRAINAGE NOTED ON GAUZE. NO SKIN REDNESS, OR IRRITATION NOTED AT STOMA SITE. SX NOT INDICATED AT THIS TIME. WILL CONTINUE TO MONITOR PT.
--- NOTE | 2020-01-15 07:30 | NUR ---
REPORT REPORT RECEIVED FROM CORDELL RNSHAHNAZ. BEDSIDE CHECK DONE. PT RESTING IN BED WITH NO DISTRESS NOTED. CONTINUE TO MONITOR.
--- NOTE | 2020-01-15 08:00 | NUR ---
ASSESSMENT PT AWAKE AND A/O X4. ABLE TO MOVE SELF IN BED AND FOLLOWS SIMPLE COMMANDS. LUNGS CLEAR THROUGHOUT. HAS O2 TO TRACH COLLAR OFF AND SAT IS 92%. REAPPLIED TRACH COLLAR WITH O2 AT 30%. #6 SHILEY TRACH, SLIGHT OOZING OF THIN SEROSANGUINOUS FLUID. AREA CLEANED. TELE ST 102. PALPABLE PULSES TO ALL EXTREMITIES. NO EDEMA NOTED. ABD SOFT WITH + BOWEL SOUNDS. [place] CATHETER DRAINING CLEAR YELLOW URINE. SKIN INTACT. CONTINUE TO MONITOR.
--- NOTE | 2020-01-15 09:18 | NUR ---
PT REQUESTING COUGH SYRUP, NONE ORDERED. PAGING DR RO.
[2020-01-15] MEDS: FLUCONAZOLE 200MG/100ML 100 ML IV SCH (09:39)
[2020-01-15] MEDS: SODIUM CHLOR 0.9% PF (SALINE LOCK) 10ML VIAL/SYR IV SCH ×2 (09:40→22:55)
[2020-01-15] MEDS: PANTOPRAZOLE 40 MG/10 ML VIAL INJ IV SCH (09:44)
[2020-01-15] MEDS: SACUBITRIL-VALSARTAN 24mg/26mg TAB PO SCH ×2 (10:07→22:56)
[2020-01-15] MEDS: FUROSEMIDE 40 MG TAB PO SCH (10:08)
[2020-01-15] MEDS: CARVEDILOL 3.125 MG TAB PO SCH ×2 (10:09→23:19)
[2020-01-15] MEDS: predniSONE 20 MG TAB PO SCH (10:09)
--- NOTE | 2020-01-15 10:18 | NUR ---
PT GIVEN SCHEDULED MEDS EXCEPT FOR POTASSIUM PT IS REQUESTING EFFERVESCENT INSTEAD OF LARGE PILL DUE TO DIFFICULTY SWALLOWING. PAGING DR RO.
--- NOTE | 2020-01-15 10:20 | NUR ---
PT TO TRANSFER TO RROM 205. TRIED TO CALL REPORT BUT RN AVAILABLE .
[2020-01-15] MEDS ORDERED: POTASSIUM EFFERVESENT TAB 25 MEQ GT ONE (10:30)
--- NOTE | 2020-01-15 10:42 | NUR ---
REPORT PT TO TRANSFER TO ROOM 205 AND REPORT CALLED TO RECEIVING RNBESSY.
--- NOTE | 2020-01-15 10:50 | NUR ---
PT TRANSPORTED TO NEW ROOM VIA WC BY HOT PATCHER, HELEN.
[2020-01-15] MEDS: levoFLOXacin 500MG 100 ML IV SCH (11:45)
--- NOTE | 2020-01-15 11:46 | NUR ---
patient requesting landrum be removed, and is asking for juice and paulino crackers I educated patient on diet, but she stated she did not care she was going to eat what she wants to eat.
--- NOTE | 2020-01-15 11:55 | NUR ---
Patient states she wants to go home, said shes going to leave herself, she doesn't need to be in the hospital she can take care of herself at home, she has someone who can help her as well. She states she is frustrated. I told patient that I would page the Dr. she asked for me to remove the landrum as well. Patient states that its nothing against the staff or doctor because she thinks she has a very good doctor but shes just ready to go home. Paged Dr fraga.
--- NOTE | 2020-01-15 12:57 | NUR ---
Nutrition Followup Notes Wt: 76.0 kg Pt was sitting up in room on the phone at time of rounds. Pt diet advanced back to [facility] soft today per MD order. Unable to determine adequate po intake as patient has not received a meal yet with new diet order. Will monitor po intake and tolerance of advanced diet. Est energy needs 5875-1366 kcal (20-25 kcal/kg BW 72.2kg) Est protein needs 58-72g (0.8-1g/kg BW 72.2kg) Will reassess prn. Labs: GLUC 150H, Alb 2.3L BM: Pt had 1 BM on 01/13 per RN doc Skin: BS 20 low risk, full details in healthcare administration internship note PES: Resolved: Inadequate oral intake aeb pt with NPO diet order r/t current medical condition Comments Will continue to monitor NPO status, skin status, pertinent labs and weight trends. Will f/u in 3-5 days. Rec: 1) Continue to monitor po intake, labs, skin 2) Refer pt to [facility] on Dc 3) Continue current plan of care
--- NOTE | 2020-01-15 13:10 | NUR ---
Dr thompson was at bed side to discuss plan of care with patient.
--- NOTE | 2020-01-15 14:08 | NUR ---
Respiratory note: PT PLACED ON SPEAKING VALVE. SPO2 93% ON RA, HR 112, RR 22, BS CLEAR BILATERALLY. MEDNEB TX GIVEN WITH NO ADVERSE EFFECTS NOTED. PT STATING THAT SHE WANTS TO GO HOME TODAY. RN AWARE. WILL CONTINUE TO MONITOR PT.
--- NOTE | 2020-01-15 14:12 | NUR ---
speaking valve placed on patient trach, per Dr Hernandez keep valve on for the day and monitor over night.
--- NOTE | 2020-01-15 14:30 | NUR ---
Patient stated that she has worn the speaking valve overnight already and it went without incidence. Patient is adamant about leaving.
--- NOTE | 2020-01-15 14:45 | NUR ---
Mary at bedside, discussed with patient that she will need to cap the trach overnight, and if she is without incidence then we can discuss discharge.
--- NOTE | 2020-01-15 15:53 | NUR ---
PT TRACH CARE WAS DONE. THIS RT MADE AN EARLIER NOTE REGARDING PT STOMA SITE HAVING NO BREAK DOWN, HOWEVER AFTER TRACH CARE WAS WAS COMPLETE I NOTICED SOME BREAK DOWN BELOW THE FLANGE PERHAPS FROM THE OLD SUTURES OF THE PREVIOUS 8.0 TRACH. THE OLD SUTURE SITE WAS NOT RED, DRAINING, OOZING, OR BLEEDING. IT WAS MAGED OVER, AND CAUSED NO DISCOMFORT TO PT WHEN ASKED. SUTURE GILLETTE WERE RELAYED TO MINCING MACHINE OPERATOR RT IN REPORT.
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
--- NOTE | 2020-01-15 17:11 | NUR ---
MET WITH PATIENT FOR SPEECH/SWALLOW. PATIENT IS TALKING WITH SPEAKING VALVE ON TRACH. PATIENT IS TOLERATING PO INTAKE WITH NO OVERT SIGNS OR SYMPTOMS OF ASPIRATION. NURSING NOTIFIED.
[2020-01-15] MEDS ORDERED: guaiFENesin 200 MG/10 ML UD ONE (17:49)
[2020-01-15] MEDS: HYDROcodone-ACET 5/325MG TAB PO PRN (17:59)
--- NOTE | 2020-01-15 19:20 | NUR ---
Opening Shift Note Patient is AOx4 and sitting in chair. Patient has no s/s of distress or SOB at this time. No complaints of pain or discomfort. Patient bed locked in lowest position and call light is within reach. Discussed POC w/ patient and patient verbalized understanding. Will continue to monitor.
[2020-01-15] MEDS: MONTELUKAST SODIUM 10 MG TAB PO SCH (22:56)
[2020-01-16] MEDS: ACCU-CHEK COMFORT CURVE STRIP VI SCH ×3 (00:11→12:25)
[2020-01-16] MEDS: InsuLIN REG 1unit/0.01ml Soln (100units/ml) SC SCH ×3 (00:22→12:00)
--- NOTE | 2020-01-16 04:15 | NUR ---
Respiratory note: DURING TRACH CARE, SKIN BREAKDOWN NOTED NEAR BOTTOM OF TRACH FLANGE. RN MADE AWARE. DRESSINGS CHANGED, DRAINAGE NOTED ON GAUZE. TRACH IS SECURED WITH TRACH TIES AND SUTURES, TRACH CAP ON AND CUFF DEFLATED, PT TOLERATING WELL.
[2020-01-16 04:58] VITALS: BP 98/70
[2020-01-16] MEDS: ALBUTEROL SULF 2.5 MG/0.5ML(0.5%) NEB SOLN NEB SCH ×3 (07:11→14:33)
[2020-01-16] MEDS: IPRATROPIUM BROM 0.5 MG/2.5ML INH SOL NEB SCH ×3 (07:11→14:33)
--- NOTE | 2020-01-16 07:30 | NUR ---
Opening Shift Note Assumed care of patient, awake and alert. Patient states SOB and would like RT paged for treatment. Instructed on POC and to call for assist PRN, will continue to monitor for changes Q1hr and PRN. Bed is locked and in lowest position. Call light within reach.
--- NOTE | 2020-01-16 08:00 | NUR ---
PAGED RT REGARDING PATIENT C/O SOB AND REQUESTING BREATHING TREATMENT. UPON ASSESSMENT PATIENT AUSCULTATION SOUND OF WHEEZING. PAGED RT TO BEDSIDE. PER RT PATIENT HAS RT TREATMENT AT 10AM. WILL NOTIFY MD OF PATIENT REQUEST. WILL CONTINUE TO MONITOR PATIENT.
[2020-01-16] MEDS: HYDROcodone-ACET 5/325MG TAB PO PRN (08:07)
--- NOTE | 2020-01-16 08:15 | NUR ---
DR. ALBERTS AT BEDSIDE TO DISCUSS POC. DR. ALBERTS NOTIFIED OF PATIENT AUSCULTATION WHEEZING UPON EXPIRATION. DR. ALBERTS INPUT NEW ORDER FOR RT. PER DR. ALBERTS PATIENT CAN HAVE TRACHEOSTOMY REMOVED TODAY. WILL CONTINUE TO MONITOR PATIENT. RT AT BEDSIDE FOR ORDER.
[2020-01-16 09:00] VITALS: BP 102/65
[2020-01-16] MEDS ORDERED: ALBUTEROL SULF 2.5 MG/0.5ML(0.5%) NEB SOLN NEB ONE (09:30)
--- NOTE | 2020-01-16 09:50 | NUR ---
DR. SHEA AT BEDSIDE TO DISCUSS POC. PER DR. SHEA PATIENT WILL BE DECANNULATED AT BEDSIDE. PATIENT TRACHEOSTOMY HAD BEEN CAPPED FOR 24 HOURS. PATIENT TOLERATED DECANNULATION WITH DR. SHEA WITH NO SIGNS OF DISTRESS OR SOB. SITE COVERED WITH 4X4 AND TAPE. DR. SHEA WOULD LIKE PATIENT MONITORED AND WILL BE DISCHARGED LATER THIS AFTERNOON.
--- NOTE | 2020-01-16 09:50 | NUR ---
PT IS DECANNULATED DR. RIVERA AT BEDSIDE WITH RN AND RT. SUTURES REMOVED AND TRACH DECANNULATED BY MD, STOMA COVERED WITH GAUZE AND SECURED WITH BANDAGE/TAPE. PROCEDURE COMPLETED WITHOUT INCIDENT. PT TOLERATED WELL, REMAINS ON ROOM AIR, SPO2 95%. NO S/S OF DISTRESS.
[2020-01-16] MEDS: CARVEDILOL 3.125 MG TAB PO SCH (10:00)
[2020-01-16] MEDS: SODIUM CHLOR 0.9% PF (SALINE LOCK) 10ML VIAL/SYR IV SCH (10:00)
[2020-01-16] MEDS ORDERED: POTASSIUM EFFERVESENT TAB 25 MEQ GT SCH (10:00)
[2020-01-16] MEDS: levoFLOXacin 500MG 100 ML IV SCH (10:00)
[2020-01-16] MEDS: FLUCONAZOLE 200MG/100ML 100 ML IV SCH (10:00)
[2020-01-16] MEDS ORDERED: predniSONE 20 MG TAB PO SCH (10:00)
[2020-01-16] MEDS ORDERED: PRED20TA2 PO (10:03)
[2020-01-16] MEDS: PANTOPRAZOLE 40 MG/10 ML VIAL INJ IV SCH (10:53)
[2020-01-16] MEDS: SACUBITRIL-VALSARTAN 24mg/26mg TAB PO SCH (10:54)
[2020-01-16] MEDS: FUROSEMIDE 40 MG TAB PO SCH (10:54)
[2020-01-16] MEDS: ALPRAZolam 0.5 MG TAB PO PRN (10:57)
[2020-01-16 12:40] VITALS: BP 102/65
--- NOTE | 2020-01-16 13:00 | NUR ---
PATIENT MONITORED DUE TO DECANNULATION. PATIENT STATES NO SIGNS OF DISTRESS, PAIN OR SOB. PATIENT TOLERATED EATING AND DRINKING WITH NO SIGNS OF DISTRESS OR SOB. PATIENT WILL BE CONTINUE TO BE MONITORED.
--- NOTE | 2020-01-16 14:32 | NUR ---
DISCHARGED PATIENT GIVEN DISCHARGE PAPERWORK, ALL QUESTIONS AND CONCERNS ANSWERED. TELEMONITOR NUMBER [id number] REMOVED AND SENT TO ICU HEART LAB. PATIENT PRESCRIPTION FROM [facility] PICKED UP AND GIVEN TO PATIENT. PATIENT OWN HOME MEDS PICKED UP FROM IN PATIENT PHARMACY AND GIVEN TO PATIENT. PATIENT GIVEN INFORMATION FOR [facility] PATIENT RELATIONS REGARDING MONEY MISSING FROM BELONGINGS. PATIENT WHEELED DOWN TO WAITING AREA TO AWAIT CHART CLERK FROM FRIEND. PICC removal PICC DC'd with clean sterile technique, catheter fully intact. Pressure dressing applied to site. Patient tolerated well.
--- NOTE | 2020-01-16 14:42 | NUR ---
PHONE CALL MADE TO PATIENT REGARDING PERSONAL BELONGINGS BAG LEFT IN ROOM AFTER DISCHARGE. VOICEMAIL LEFT FOR PATIENT INFORMING OF BELONGS BAG IN CENTRAL WING. WILL AWAIT PATIENT PHONE CALL.
--- NOTE | 2020-01-16 14:50 | NUR ---
PHONE CALL RECEIVED FROM [facility] REGARDING SPUTUM CULTURE POSITIVE FOR MRSA. PATIENT HAS BEEN DISCHARGED.
== END 2020-01-16 14:34 | disposition home or self-care (01) | DRG 4 ==
LOC: ER 09:35 → EDBD 09:35 → OR 1 09:36 → ICU WEST 09:37 → UNDOADMIN 09:37 → TELE 09:37 → DOU IN ICU 01-08 12:20 → TELE-WESTW 01-10 23:10 → ICU WEST 01-14 17:20 → TELE-CENTR 01-15 12:36
PROVIDERS: ADMIT Surgery; ATTEND Internal Medicine Pulmonary Disease
PROC: 30233K1 Transfusion of Nonautologous Frozen Plasma into Peripheral Vein, Percutaneous Approach (ICD-10-PCS; 2019-12-31)
PROC: 5A1955Z Respiratory Ventilation, Greater than 96 Consecutive Hours (ICD-10-PCS; 2019-12-31)
PROC: 0D9670Z Drainage of Stomach with Drainage Device, Via Natural or Artificial Opening (ICD-10-PCS; 2019-12-31)
PROC: 0T9B70Z Drainage of Bladder with Drainage Device, Via Natural or Artificial Opening (ICD-10-PCS; 2019-12-31)
PROC: 02HV33Z Insertion of Infusion Device into Superior Vena Cava, Percutaneous Approach (ICD-10-PCS; 2019-12-31)
PROC: 0DH67UZ Insertion of Feeding Device into Stomach, Via Natural or Artificial Opening (ICD-10-PCS; 2019-12-31)
PROC: 0B110F4 Bypass Trachea to Cutaneous with Tracheostomy Device, Open Approach (ICD-10-PCS; principal; 2019-12-31 10:05)
PROC: 0B21XFZ Change Tracheostomy Device in Trachea, External Approach (ICD-10-PCS; 2020-01-14)
DX: T78.3XXA Angioneurotic edema, initial encounter (principal); J96.00 Acute respiratory failure, unspecified whether with hypoxia or hypercapnia; T78.2XXA Anaphylactic shock, unspecified, initial encounter; I50.22 Chronic systolic (congestive) heart failure; I42.7 Cardiomyopathy due to drug and external agent; I42.0 Dilated cardiomyopathy; E11.65 Type 2 diabetes mellitus with hyperglycemia; J98.8 Other specified respiratory disorders; I95.9 Hypotension, unspecified; J44.9 Chronic obstructive pulmonary disease, unspecified; F12.90 Cannabis use, unspecified, uncomplicated; F15.10 Other stimulant abuse, uncomplicated; I11.0 Hypertensive heart disease with heart failure; F17.210 Nicotine dependence, cigarettes, uncomplicated; Z79.899 Other long term (current) drug therapy; Z79.891 Long term (current) use of opiate analgesic; Z79.4 Long term (current) use of insulin; Z91.041 Radiographic dye allergy status; Z88.2 Allergy status to sulfonamides; Z20.828 Contact with and (suspected) exposure to other viral communicable diseases
CPT/HCPCS: 31500; 36415; 36430; 36569; 36600; 71045; 73502; 80048; 80053; 80307; 81001; 82805; 82962; 83036; 84443; 84484; 84702; 85025; 85610; 85730; 86850; 86900; 86901; 87070; 87077; 87081; 87186; 87205; 92610; 93306; 94002; 94003; 94640; 96365; 96375; 97110; 97116; 97163; 97530; 99291; A4605; C9113; G0378; J0330; J1100; J1450; J1815; J1956; J2001; J2250; J2405; J2543; J2704; J3490; J7060

== ENCOUNTER 2020-04-15 13:42 | Emergency (ER) | payer MEDICARE, OTHER ==
[~2020-04-15] VITALS: Ht 172.7 cm; Wt 77.1 kg
[~2020-04-15 13:42] MED LIST: ALBUAER3 IN; FURO1TAB31 PO; LEVO-28 PO; LISI30TA4 PO; OXYC325T14 PO; PRED20TA2 PO; SACU1TAB PO; SULF-92 PO
[2020-04-15] MEDS ORDERED: AZITHROMYCIN 250 MG TAB PO ONE (15:15)
[2020-04-15] MEDS ORDERED: cefTRIAXone W LIDOCAINE 1 GM IM IM ONE (15:15)
[2020-04-15] MEDS ORDERED: HYDROcodone-ACET 10/325MG TAB PO ONE (15:15)
[2020-04-15] MEDS ORDERED: cefTRIAXone SOD 1,000 MG VL ONE (15:58)
[2020-04-15 18:12] VITALS: BP 114/69
== END 2020-04-15 18:12 | disposition home or self-care (01) ==
LOC: ER 13:42
DX: J18.9 Pneumonia, unspecified organism (principal); R07.81 Pleurodynia; I11.0 Hypertensive heart disease with heart failure; I50.9 Heart failure, unspecified; E11.9 Type 2 diabetes mellitus without complications; F17.210 Nicotine dependence, cigarettes, uncomplicated; F12.10 Cannabis abuse, uncomplicated; Z88.2 Allergy status to sulfonamides
CPT/HCPCS: 71101; 96372; 99283; J0696